=== PATIENT | male | born 1950 | race Caucasian/White ===

== ENCOUNTER 2018-12-25 20:58 | Inpatient (IN) | payer MEDICARE ==
[~2018-12-25] VITALS: Ht 170.2 cm; Wt 75.8 kg
[2018-12-25] MEDS ORDERED: OCTREOTIDE 500 MCG in SOD CHLORIDE 0.9% 49 ML IV STA (21:11)
[2018-12-25] MEDS ORDERED: OCTREOTIDE 50 MCG in SOD CHLORIDE 0.9% 25 ML IVPB STA (21:11)
[2018-12-25] MEDS ORDERED: PANTOPRAZOLE IV 80 MG in SOD CHLORIDE 0.9% 100 ML IVPB STA (21:11)
[2018-12-25] MEDS ORDERED: SOD CHLORIDE 0.9% 500 ML IV STA (21:11)
[2018-12-25] MEDS ORDERED: PANTOPRAZOLE IV 80 MG in SOD CHLORIDE 0.9% 100 ML IV STA (21:11)
[2018-12-25] MEDS ORDERED: ONDANSETRON INJ 8 MG in DEXTROSE 5% 50 ML IVPB STA (21:11)
[2018-12-25] MEDS ORDERED: SOD CHLORIDE 0.9% 1,000 ML IV SCH (22:57)
[2018-12-25] MEDS ORDERED: ONDANSETRON 4 MG INJ IV PRN ×2 (23:00→23:30)
[2018-12-25] MEDS ORDERED: ACETAMINOPHEN 325 MG TAB PO PRN (23:00)
--- NOTE | 2018-12-25 23:00 | ERD ---
ER Documentation Chief Complaint Chief Complaint R39. HEMATEMESIS TODAY. ABOUT 500CC BRIGHT RED BLOOD. HPI This is a 68-year-old male who is here for vomiting blood just prior to arrival. EMS reports he had about 500 cc of bright red blood seen with blood pressure was 80/40 was normalized in route and is normal here and stable. Patient denies any alcohol use or NSAID use no prior history of GI bleed except he had vomited about 2 weeks ago with specks of blood however he is complaining of no melena over the past 2 weeks.. Denies any abdominal pain other than occasional off-and-on left upper quadrant pain ROS All systems reviewed and are negative except as per history of present illness. Allergies Allergies: Coded Allergies: No Known Allergy (Unverified , 12/25/18) PMhx/Soc Medical and Surgical Hx: pt denies Medical Hx, pt denies Surgical Hx History of Surgery: No Anesthesia Reaction: No Hx Neurological Disorder: No Hx Respiratory Disorders: No Hx Cardiac Disorders: No Hx Psychiatric Problems: No Hx Miscellaneous Medical Probl: No Hx Alcohol Use: Yes (OCCASSIONALLY) Hx Substance Use: No Hx Tobacco Use: Yes Smoking Status: Former smoker FmHx Family History: No coronary disease Physical Exam Vitals Vital Signs Date Temp Pulse Resp B/P (MAP) Pulse Ox O2 O2 Flow FiO2 Time Delivery Rate 12/25/18 98.0 77 18 112/68 100 21:00 (83) Physical Exam Const: Well-developed, well-nourished Head: Atraumatic, normocephalic Eyes: Normal Conjunctiva, PERRLA, EOMI, normal sclera, no nystagmus ENT: Normal External Ears, Nose and Mouth, moist mucus membranes. Neck: Full range of motion. No meningismus, no lymphadenopathy. Resp: Clear to auscultation bilaterally, no wheezing, rhonchi, rales Cardio: Regular rate and rhythm, no murmurs, S1 S2 present Abd: Soft, mild left upper quadrant tenderness, non distended. Normal bowel sounds, no guarding or rebound, no pulsitile abdominal masses or bruits Skin: No petechiae or rashes, no ecchymosis , no maculopapular rash Back: No midline or flank tenderness Ext: No cyanosis, or edema, FROM x 4, normal inspection, neurovascularly intact x 4 Neur: Awake and alert, STR 5/5 x 4, sensation intact x 4, no focal findings, cerebellum intact Psych: Normal Mood and Affect Result Diagram: 12/25/18210312/25/182103 Results 24 hrs Laboratory Tests Test 12/25/18 21:04 White Blood Count 9.5 10^3/ul Red Blood Count 3.64 10^6/ul Hemoglobin 10.9 g/dl Hematocrit 33.2 % Mean Corpuscular Volume 91.2 fl Mean Corpuscular Hemoglobin 29.9 pg Mean Corpuscular Hemoglobin Concent 32.8 g/dl Red Cell Distribution Width 12.4 % Platelet Count 231 10^3/UL Mean Platelet Volume 9.8 fl Immature Granulocytes % 0.400 % Neutrophils % 68.9 % Lymphocytes % 24.4 % Monocytes % 5.2 % Eosinophils % 0.8 % Basophils % 0.3 % Nucleated Red Blood Cells % 0.0 /100WBC Immature Granulocytes # 0.040 10^3/ul Neutrophils # 6.5 10^3/ul Lymphocytes # 2.3 10^3/ul Monocytes # 0.5 10^3/ul Eosinophils # 0.1 10^3/ul Basophils # 0.0 10^3/ul Nucleated Red Blood Cells # 0.0 10^3/ul Prothrombin Time 12.9 Sec Prothrombin Time Ratio 1.0 INR International Normalized Ratio 0.96 Activated Partial Thromboplast Time 20.0 Sec Sodium Level 143 mmol/L Potassium Level 3.7 mmol/L Chloride Level 107 mmol/L Carbon Dioxide Level 24 mmol/L Anion Gap 12 Blood Urea Nitrogen 22 mg/dl Creatinine 0.86 mg/dl Est Glomerular Filtrat Rate mL/min > 60 mL/min Glucose Level 140 mg/dl Calcium Level 9.4 mg/dl Total Bilirubin 0.4 mg/dl Direct Bilirubin 0.00 mg/dl Indirect Bilirubin 0.4 mg/dl Aspartate Amino Transf (AST/SGOT) 19 IU/L Alanine Aminotransferase (ALT/SGPT) 15 IU/L Alkaline Phosphatase 50 IU/L Troponin I < 0.012 ng/ml Total Protein 6.3 g/dl Albumin 3.8 g/dl Globulin 2.50 g/dl Albumin/Globulin Ratio 1.52 Current Medications Medications Dose Sig/Shahram Start Time Status Last (Trade) Ordered Route PRN Stop Time Admin Dose Reason Admin Sodium 500 ml @ Q1H STAT 12/25/18 DC 12/25/18 Chloride 500 mls/hr IV 21:11 12/25/18 21:40 22:10 Pantoprazole 100 ml @ ONCE STAT 12/25/18 DC 12/25/18 80 mg/Sodium 400 mls/hr IVPB 21:11 12/25/18 21:41 Chloride 21:25 Pantoprazole 100 ml @ ONCE STAT 12/25/18 12/25/18 80 mg/Sodium 10 mls/hr IV 21:11 12/26/18 21:41 Chloride 07:10 Octreotide 26 ml @ Q16M STAT 12/25/18 DC Acetate 50 100 mls/hr IVPB 21:11 12/25/18 mcg/ Sodium 21:54 Chloride Octreotide 50 ml @ 5 ONCE STAT 12/25/18 DC Acetate 500 mls/hr IV 21:11 12/25/18 mcg/ Sodium 21:54 Chloride Ondansetron 54 ml @ ONCE STAT 12/25/18 DC HCl 8 200 mls/hr IVPB 21:11 12/25/18 mg/Dextrose 21:54 Procedures/MDM Patient's hemoglobin is relatively stable at 10.9. He received some IV fluids with Protonix IV bolus and drip. I did discuss the case with GI, Dr. Cher brown who will see the patient in the morning for a scope Critical Care Time: 35 minutes Treatments/Evaluations: Close monitoring and treatment of unstable vital signs, cardiorespiratory, and neurologic status, while maintaining tight balance of fl uid, respiratory, and cardiac interventions. This time includes discussing the case with the patient and the patient's family. This time does not include all procedures stated elsewhere in this record. This time also includes reviewing old records, labs and radiological studies. This time includes examining and re- examining the patient. Additionally, this time also includes arranging care with admitting and consulting physicians. Departure Diagnosis: Primary Impression: Hematemesis Nausea presence: with nausea Qualified Codes: K92.0 - Hematemesis Condition: Stable ZAC VEGA DO Dec 25, 2018 23:00
[2018-12-25] MEDS: SOD CHLORIDE 0.9% 1,000 ML IV SCH (23:29)
[2018-12-25] MEDS ORDERED: morphine 2 MG INJ IV PRN (23:30)
[2018-12-25] MEDS ORDERED: HYDROCODONE/APAP (5/325) TAB PO PRN (23:30)
[2018-12-25] MEDS ORDERED: hydrALAzine 20 MG INJ IV PRN (23:30)
[2018-12-25] MEDS ORDERED: NACL 0.9% 3 ML SYG IV SCH (23:30)
[2018-12-25] MEDS ORDERED: MAGNESIUM HYDROXIDE 30ML CUP PO PRN (23:30)
[2018-12-25] MEDS ORDERED: DOCUSATE SODIUM 100 MG CAP PO PRN (23:30)
[2018-12-25] MEDS ORDERED: LORAZEPAM 2 MG INJ IV PRN (23:30)
[2018-12-25] MEDS ORDERED: NITROGLYCERIN (SL) 0.4 MG TAB SL PRN (23:30)
[2018-12-26] VITALS (17 sets, daily range): BP systolic 103–116; BP diastolic 58–66; PULSE 60–124; RESP 16–22; Ht 170.2 cm; Wt 75.8 kg
[2018-12-26] MEDS ORDERED: OMEP40CA6 PO (00:01)
[2018-12-26] MEDS ORDERED: TAMS-14 PO (00:01)
[2018-12-26] MEDS ORDERED: ACET1TAB40 PO (00:01)
[2018-12-26] MEDS ORDERED: LEVO500T10 PO (00:01)
--- NOTE | 2018-12-26 04:34 | HP ---
Date/Time of Note Date/Time of Note DATE: 12/26/18 TIME: 04:30 Assessment/Plan VTE Prophylaxis SCD applied (from Nsg): Yes Pharmacological prophylaxis: NA/contraindicated Pharm contraindication: bleeding Lines/Catheters IV Catheter Type (from Nrs): Saline Lock Urinary Cath still in place: No Assessment/Plan Hospital Course Assessment and plan: 68-year-old male with no significant past medical history who was brought in because of complaint of upper GI bleeding episode x1. 1. Upper GI bleeding/hematemesis: Hemoglobin stable at 10.9. Apparently patient may have had a brief episode of this that occurred 2 weeks ago. -We will continue PPI IV twice daily and obtain GI consult, follow-up TSH, A1c, lipid panel -Continue IV fluids, follow a.m. labs including stool occult test 2. DVT perplexes: Medications contraindicated just use SCDs for now Result Diagram: 12/25/18210312/25/182103 Results 24hrs Laboratory Tests Test 12/25/18 21:04 White Blood Count 9.5 Red Blood Count 3.64 L Hemoglobin 10.9 L Hematocrit 33.2 L Mean Corpuscular Volume 91.2 Mean Corpuscular Hemoglobin 29.9 Mean Corpuscular Hemoglobin Concent 32.8 Red Cell Distribution Width 12.4 Platelet Count 231 Mean Platelet Volume 9.8 Immature Granulocytes % 0.400 Neutrophils % 68.9 Lymphocytes % 24.4 Monocytes % 5.2 Eosinophils % 0.8 Basophils % 0.3 Nucleated Red Blood Cells % 0.0 Immature Granulocytes # 0.040 H Neutrophils # 6.5 Lymphocytes # 2.3 Monocytes # 0.5 Eosinophils # 0.1 Basophils # 0.0 Nucleated Red Blood Cells # 0.0 Prothrombin Time 12.9 Prothrombin Time Ratio 1.0 INR International Normalized Ratio 0.96 Activated Partial Thromboplast Time 20.0 L Sodium Level 143 Potassium Level 3.7 Chloride Level 107 Carbon Dioxide Level 24 Anion Gap 12 Blood Urea Nitrogen 22 H Creatinine 0.86 Est Glomerular Filtrat Rate mL/min > 60 Glucose Level 140 Calcium Level 9.4 Total Bilirubin 0.4 Direct Bilirubin 0.00 Indirect Bilirubin 0.4 Aspartate Amino Transf (AST/SGOT) 19 Alanine Aminotransferase (ALT/SGPT) 15 Alkaline Phosphatase 50 Troponin I < 0.012 Total Protein 6.3 Albumin 3.8 Globulin 2.50 Albumin/Globulin Ratio 1.52 Free Thyroxine 1.22 HPI/ROS Admit Date/Time Admit Date/Time Dec 25, 2018 at 22:57 Hx of Present Illness 68-year-old male with no significant past medical history who was brought in today because of complaint of upper GI bleeding earlier. Per EMS documentation apparently the patient had vomited 500 cc of blood at home and noticed his blood pressure was low 80/40. Blood pressure improved. No fevers or chills, no diarrhea constipation, no chest pain or shortness of breath, no lower GI bleeding. Patient apparently had a brief episode of specks of blood that he vomited about 2 weeks ago, but other than that no prior history of any gastritis or ulcers or other known episodes of GI bleeding. When he came in today his hemoglobin was 10.9, however he was started on PPI drip and did receive octreotide in the ER. PMH/Family/Social Past Medical History Medications Current Medications Pantoprazole 80 mg/Sodium Chloride 100 ml @ 10 mls/hr ONCE STAT IV Last administered on 12/25/18at 21:41; Admin Dose 10 MLS/HR; Start 12/25/18 at 21:11; Stop 12/26/18 at 07:10 Sodium Chloride 1,000 ml @ 80 mls/hr [id number] IV Last administered on 12/25/18at 23:28; Admin Dose 80 MLS/HR; Start 12/25/18 at 22:57; Stop 12/26/18 at 11:26 Ondansetron HCl (Zofran Inj) 4 mg ER BRIDGE PRN IV NAUSEA/VOMITING; Start 9 at 23:00; Stop 12/26/18 at 22:59 Acetaminophen (Tylenol Tab) 650 mg ER BRIDGE PRN PO .MILD PAIN 1-3 OR TEMP; Start 12/25/18 at 23:00; Stop 12/26/18 at 22:59 IV Flush (NS 3 ml) 3 ml PER PROTOCOL IV ; Start 12/25/18 at 23:30 Ondansetron HCl (Zofran Inj) 4 mg Q6H PRN IV NAUSEA/VOMITING; Start 12/25/18 at 23:30 Acetaminophen (Tylenol Tab) 650 mg Q6H PRN PO .PAIN 1-3 OR TEMP; Start 12/25/18 at 23:30 Acetaminophen/ Hydrocodone Bitart ([place] (5/325)) 1 tab Q6H PRN PO .MOD PAIN 4- 6; Start 12/25/18 at 23:30 Morphine Sulfate (morphine) 2 mg Q4H PRN IV .SEVERE PAIN 7-10; Start 12/25/18 at 23:30 Docusate Sodium (Colace) 100 mg Q12H PRN PO .CONSTIPATION; Start 12/25/18 at 23:30 Magnesium Hydroxide (Milk Of Mag) 30 ml DAILY PRN PO .CONSTIPATION; Start 12/25/18 at 23:30 Pantoprazole (Protonix Iv) 40 mg BID@0600,1800 IV ; Start 12/26/18 at 06:00 Lorazepam (Ativan) 0.5 mg Q6H PRN IV ANXIETY; Start 12/25/18 at 23:30 Sodium Chloride 1,000 ml @ 100 mls/hr Q10H IV Last administered on 12/25/18at 23:29; Admin Dose 100 MLS/HR; Start 12/25/18 at 23:04 Albuterol/ Ipratropium (Duoneb) 3 ml Q4H RESP THERAPY PRN HHN SHORTNESS OF BREATH; Start 12/25/18 at 23:30 Hydralazine HCl (Apresoline) 10 mg Q6H PRN IV ELEVATED BLOOD PRESSURE; Start 12/25/18 at 23:30 Nitroglycerin (Nitroglycerin (Sl Tab) 0.4 Mg) 1 tab Q5M PRN SL ANGINA; Start 12/25/18 at 23:30 Coded Allergies: No Known Allergy (Unverified , 12/25/18) Social History Alcohol Use: occasionally Smoking Status: Former smoker Drug Use: none Exam/Review of Systems Vital Signs Vitals Vital Signs Date Temp Pulse Resp B/P (MAP) Pulse Ox O2 O2 Flow FiO2 Time Delivery Rate 12/26/18 98.2 81 18 116/64 99 04:00 (81) 12/26/18 Room Air 00:20 Intake and Output 12/25/18 12/25/18 12/26/18 1515:00 23:00 07:00 IntakeIntake Total 1820 ml BalanceBalance 1820 ml Exam Exam Gen: Lying in bed, no acute distress Head: Atraumatic. Eyes: Normal Conjunctiva. ENT: Normal External Ears, Nose and Mouth. Neck: Full range of motion. No meningismus. Resp: Clear to auscultation bilaterally. Cardio: Regular rate and rhythm. Abd: Soft, nondistended, normal bowel sounds, non tender. Ext: No lower extremity edema bilaterally Neuro: No focal deficits KAITLYN SHIPLEY Dec 26, 2018 04:34
[2018-12-26] MEDS: PANTOPRAZOLE 40 MG INJ IV SCH ×2 (05:34→17:11)
[2018-12-26] MEDS: SOD CHLORIDE 0.9% 1,000 ML IV SCH ×3 (09:04→18:56)
--- NOTE | 2018-12-26 11:53 | HPN ---
Date/Time of Note Date/Time of Note DATE: 12/26/18 TIME: 11:53 Interval H&P Admission Note Pt. seen H&P reviewed: No system changes CONG HUNTLEY MD Dec 26, 2018 11:53
--- NOTE | 2018-12-26 12:19 | PREAC ---
Date/Time of Note Date/Time of Note DATE: 12/26/18 TIME: 12:17 Anesthesia Eval and Record Evaluation Time Pre-Procedure Interview DATE: 12/26/18 TIME: 12:17 Age 68 Sex male NPO: 8 hrs Preoperative diagnosis upper gi bleed Planned procedure egd Past Medical History Past Medical History: Includes Heme: Anemia Surgery & Anesthesia Issues No known issue Meds Anticoagulation: No Beta Pedro within 24 hr: No Reason Beta Pedro not given: Pt. not on B-Pedro Reported Medications Tamsulosin Hcl* (Flomax*) 0.4 Mg Cap.er.24h, 0.4 MG PO DAILY, CAP 12/26/18 Acetaminophen with Codeine (Acetaminophen-Cod #3 Tablet) 1 Each Tablet, 1 TAB PO Q6H, #7 TAB 12/26/18 Levofloxacin* (Levofloxacin*) 500 Mg Tablet, 500 MG PO DAILY, TAB 12/26/18 Omeprazole* (Omeprazole*) 40 Mg Capsule.dr, 40 MG PO DAILY, #30 CAP 12/26/18 Current Medications Ondansetron HCl (Zofran Inj) 4 mg ER BRIDGE PRN IV NAUSEA/VOMITING; Start 12/25/18 at 23:00; Stop 12/26/18 at 22:59 Acetaminophen (Tylenol Tab) 650 mg ER BRIDGE PRN PO .MILD PAIN 1-3 OR TEMP; Start 12/25/18 at 23:00; Stop 12/26/18 at 22:59 IV Flush (NS 3 ml) 3 ml PER PROTOCOL IV ; Start 12/25/18 at 23:30 Ondansetron HCl (Zofran Inj) 4 mg Q6H PRN IV NAUSEA/VOMITING; Start 12/25/18 at 23:30 Acetaminophen (Tylenol Tab) 650 mg Q6H PRN PO .PAIN 1-3 OR TEMP; Start 12/25/18 at 23:30 Acetaminophen/ Hydrocodone Bitart ([place] (5/325)) 1 tab Q6H PRN PO .MOD PAIN 4- 6; Start 12/25/18 at 23:30 Morphine Sulfate (morphine) 2 mg Q4H PRN IV .SEVERE PAIN 7-10; Start 12/25/18 at 23:30 Docusate Sodium (Colace) 100 mg Q12H PRN PO .CONSTIPATION; Start 12/25/18 at 23:30 Magnesium Hydroxide (Milk Of Mag) 30 ml DAILY PRN PO .CONSTIPATION; Start 12/25/18 at 23:30 Pantoprazole (Protonix Iv) 40 mg BID@0600,1800 IV ; Start 12/26/18 at 06:00 Lorazepam (Ativan) 0.5 mg Q6H PRN IV ANXIETY; Start 12/25/18 at 23:30 Sodium Chloride 1,000 ml @ 100 mls/hr Q10H IV Last administered on 12/26/18at 09:42; Admin Dose 100 MLS/HR; Start 12/25/18 at 23:04 Albuterol/ Ipratropium (Duoneb) 3 ml Q4H RESP THERAPY PRN HHN SHORTNESS OF BREATH; Start 12/25/18 at 23:30 Hydralazine HCl (Apresoline) 10 mg Q6H PRN IV ELEVATED BLOOD PRESSURE; Start 12/25/18 at 23:30 Nitroglycerin (Nitroglycerin (Sl Tab) 0.4 Mg) 1 tab Q5M PRN SL ANGINA; Start 12/25/18 at 23:30 Meds reviewed: Yes Allergies Coded Allergies: No Known Allergy (Unverified , 12/25/18) Allergies Reviewed: Yes Labs/Studies Labs Reviewed: Reviewed by anesthesiologist Result Diagram: 12/26/1862212/26/18622 Laboratory Tests 12/26/18 06:23 Blood Bank Test 12/25/18 21:04 Antibody Screen NEGATIVE Blood Type B POSITIVE test: N/A Studies: ECG, CXR Pre-procedure Exam Last vitals Vital Signs Date Temp Pulse Resp B/P (MAP) Pulse Ox O2 O2 Flow FiO2 Time Delivery Rate 12/26/18 98.0 70 18 107/60 96 Room Air 11:58 (76) Airway: Adequate mouth opening, Adequate thyromental dist Mallampati: Mallampati I Teeth: Normal Lung: Normal Heart: Normal ASA Physical Status ASA physical status: 3 Emergency: None Planned Anesthetic General/MAC: MAC Planned Pain Management Parenteral pain med Pre-operative Attestations Prior to commencing anesthesia and surgery, the patient was re-evaluated, there was verification of: *The patient's identity *The results of appropriate recent lab work and preoperative vital signs *The above evaluation not changing prior to induction *Anesthetic plan, risk benefits, alternative and complications discussed with patient/family; questions answered; patient/family understands, accepts and wishes to proceed. JULIANNA YOUNG Dec 26, 2018 12:19
--- NOTE | 2018-12-26 12:19 | CONS ---
Assessment/Plan Assessment/Plan Hospital Course (Demo Recall) Impression: GI bleeding/hematemesis. Moderate anemia. Plan: EGD today. Further recommendation will depend on our findings. Consultation Date/Type/Reason Admit Date/Time Dec 25, 2018 at 22:57 Date of Consultation: Dec 26, 2018 Type of Consult Gastroenterology Reason for Consultation GI bleeding Date/Time of Note DATE: 12/26/18 TIME: 12:07 Hx of Present Illness 68-year-old male who presents to the emergency room complaining of episodes of hematemesis. The patient describes epigastric abdominal pain. And sudden onset of nausea which resulted in hematemesis on several occasions. The patient states that approximately 2 to 3 weeks ago had similar episode but not as severe as this 1. Upon evaluation the emergency room patient is noticed to be hemo dynamically stable although initially was slightly hypotensive. His hemoglobin came in the 10 g range. The patient is hospitalized for further management. We will evaluate endoscopically and further recommendation will depend on our findings. Review of Systems: [A 12 system, review was conducted and is negative except as noted in the HPI or here.] Gastrointestinal and liver: [As noted in HPI] Past Medical History Benign prostatic hypertrophy Home Meds Reported Medications Tamsulosin Hcl* (Flomax*) 0.4 Mg Cap.er.24h, 0.4 MG PO DAILY, CAP 12/26/18 Acetaminophen with Codeine (Acetaminophen-Cod #3 Tablet) 1 Each Tablet, 1 TAB PO Q6H, #7 TAB 12/26/18 Levofloxacin* (Levofloxacin*) 500 Mg Tablet, 500 MG PO DAILY, TAB 12/26/18 Omeprazole* (Omeprazole*) 40 Mg Capsule.dr, 40 MG PO DAILY, #30 CAP 12/26/18 Medications Current Medications Ondansetron HCl (Zofran Inj) 4 mg ER BRIDGE PRN IV NAUSEA/VOMITING; Start 12/25/18 at 23:00; Stop 12/26/18 at 22:59 Acetaminophen (Tylenol Tab) 650 mg ER BRIDGE PRN PO .MILD PAIN 1-3 OR TEMP; Start 12/25/18 at 23:00; Stop 12/26/18 at 22:59 IV Flush (NS 3 ml) 3 ml PER PROTOCOL IV ; Start 12/25/18 at 23:30 Ondansetron HCl (Zofran Inj) 4 mg Q6H PRN IV NAUSEA/VOMITING; Start 12/25/18 at 23:30 Acetaminophen (Tylenol Tab) 650 mg Q6H PRN PO .PAIN 1-3 OR TEMP; Start 12/25/18 at 23:30 Acetaminophen/ Hydrocodone Bitart ([place] (5/325)) 1 tab Q6H PRN PO .MOD PAIN 4- 6; Start 12/25/18 at 23:30 Morphine Sulfate (morphine) 2 mg Q4H PRN IV .SEVERE PAIN 7-10; Start 12/25/18 at 23:30 Docusate Sodium (Colace) 100 mg Q12H PRN PO .CONSTIPATION; Start 12/25/18 at 23:30 Magnesium Hydroxide (Milk Of Mag) 30 ml DAILY PRN PO .CONSTIPATION; Start 12/25/18 at 23:30 Pantoprazole (Protonix Iv) 40 mg BID@0600,1800 IV ; Start 12/26/18 at 06:00 Lorazepam (Ativan) 0.5 mg Q6H PRN IV ANXIETY; Start 12/25/18 at 23:30 Sodium Chloride 1,000 ml @ 100 mls/hr Q10H IV Last administered on 12/26/18at 09:42; Admin Dose 100 MLS/HR; Start 12/25/18 at 23:04 Albuterol/ Ipratropium (Duoneb) 3 ml Q4H RESP THERAPY PRN HHN SHORTNESS OF BREATH; Start 12/25/18 at 23:30 Hydralazine HCl (Apresoline) 10 mg Q6H PRN IV ELEVATED BLOOD PRESSURE; Start 12/25/18 at 23:30 Nitroglycerin (Nitroglycerin (Sl Tab) 0.4 Mg) 1 tab Q5M PRN SL ANGINA; Start 12/25/18 at 23:30 Allergies: Coded Allergies: No Known Allergy (Unverified , 12/25/18) Past Surgical History Past Surgical Hx: no surgical history Family History Significant Family History: no pertinent family hx Social History Alcohol Use: occasionally Smoking Status: Former smoker Drug Use: none Exam/Review of Systems Exam Vitals Vital Signs Date Temp Pulse Resp B/P (MAP) Pulse Ox O2 O2 Flow FiO2 Time Delivery Rate 12/26/18 98.0 70 18 107/60 96 Room Air 11:58 (76) Intake and Output 6/02/0512/25/18 12/26/18 1515:00 23:00 07:00 IntakeIntake Total 1860 ml BalanceBalance 1860 ml Exam PHYSICAL EXAMINATION: GENERAL: Well developed, well nourished, alert & oriented x 3, in no acute distress SKIN: No lesions, no stigmata chronic liver disease, no evidence of bleeding diathesis LYMPHATIC: No palpable lymphadenopathy. HEAD: Normocephalic, atraumatic, no tenderness. EYES: Pupils equal reactive to light and accommodation, full extraocular movements, sclera clear, non-icteric, no discharge. EARS/NOSE AND THROAT: Ears normal, nose normal, oropharynx normal, oral membranes well hydrated without lesions. NECK: Supple, no masses, thyroid normal, JVP within normal limits, carotids normal without bruits. CHEST: Inspection within normal limits. CARDIOVASCULAR: Heart: Regular rate and rhythm, no murmurs, gallops or rubs. Peripheral pulses present within normal limits, no cyanosis, clubbing or edemas. No pulsatile abdominal mass RESPIRATORY: Lungs clear to auscultation and percussion, no wheezing, no rubs GASTROINTESTINAL AND LIVER: Abdomen: Soft, non tenderness, non-distended, no hernias, no masses, no organomegaly, no ascites, no guarding, no rebound tenderness, normoactive bowel sounds. Rectal: Deferred. GENITOURINARY: [Male genitalia within normal limits.][Female genitalia within normal limits.] EXTREMITIES: No cyanosis, clubbing or edema. [MUSCULO-SKELETAL: Gait and station within normal limits, range of motion adequate.] [NEUROLOGIC: Cranial nerves II-XII intact, Motor within normal limits, Sensory within normal limits. Reflexes within normal limits. PSYCHIATRIC: Alert & oriented x 3, mood/affect/judgement adequate] Results Result Diagram: 12/26/18 0612/26/18 0623 Results 24hrs Laboratory Tests Test 12/25/18 21:04 12/26/18 06:23 White Blood Count 9.5 7.0 # Red Blood Count 3.64 L 3.27 L Hemoglobin 10.9 L 9.6 L Hematocrit 33.2 L 29.5 L Mean Corpuscular Volume 91.2 90.2 Mean Corpuscular Hemoglobin 29.9 29.4 Mean Corpuscular Hemoglobin Concent 32.8 32.5 Red Cell Distribution Width 12.4 12.6 Platelet Count 231 211 Mean Platelet Volume 9.8 9.7 Immature Granulocytes % 0.400 0.400 Neutrophils % 68.9 54.5 Lymphocytes % 24.4 35.8 Monocytes % 5.2 8.6 Eosinophils % 0.8 0.4 Basophils % 0.3 0.3 Nucleated Red Blood Cells % 0.0 0.0 Immature Granulocytes # 0.040 H 0.030 Neutrophils # 6.5 3.8 Lymphocytes # 2.3 2.5 Monocytes # 0.5 0.6 Eosinophils # 0.1 0.0 Basophils # 0.0 0.0 Nucleated Red Blood Cells # 0.0 0.0 Prothrombin Time 12.9 Prothrombin Time Ratio 1.0 INR International Normalized Ratio 0.96 Activated Partial Thromboplast Time 20.0 L Sodium Level 143 141 Potassium Level 3.7 4.8 Chloride Level 107 107 Carbon Dioxide Level 24 28 Anion Gap 12 6 Blood Urea Nitrogen 22 H 19 Creatinine 0.86 0.76 Est Glomerular Filtrat Rate mL/min > 60 > 60 Glucose Level 140 122 Calcium Level 9.4 9.0 Total Bilirubin 0.4 Direct Bilirubin 0.00 Indirect Bilirubin 0.4 Aspartate Amino Transf (AST/SGOT) 19 Alanine Aminotransferase (ALT/SGPT) 15 Alkaline Phosphatase 50 Troponin I < 0.012 Total Protein 6.3 Albumin 3.8 Globulin 2.50 Albumin/Globulin Ratio 1.52 Free Thyroxine 1.22 Hemoglobin A1c 5.4 Phosphorus Level 3.9 Magnesium Level 1.9 Triglycerides Level 111 Cholesterol Level 162 LDL Cholesterol, Calculated 94 HDL Cholesterol 46 Cholesterol/HDL Ratio 3.5 Thyroid Stimulating Hormone (TSH) 0.384 L Medications Medication Current Medications Ondansetron HCl (Zofran Inj) 4 mg ER BRIDGE PRN IV NAUSEA/VOMITING; Start 12/25/18 at 23:00; Stop 12/26/18 at 22:59 Acetaminophen (Tylenol Tab) 650 mg ER BRIDGE PRN PO .MILD PAIN 1-3 OR TEMP; Start 12/25/18 at 23:00; Stop 12/26/18 at 22:59 IV Flush (NS 3 ml) 3 ml PER PROTOCOL IV ; Start 12/25/18 at 23:30 Ondansetron HCl (Zofran Inj) 4 mg Q6H PRN IV NAUSEA/VOMITING; Start 12/25/18 at 23:30 Acetaminophen (Tylenol Tab) 650 mg Q6H PRN PO .PAIN 1-3 OR TEMP; Start 12/25/18 at 23:30 Acetaminophen/ Hydrocodone Bitart ([place] (5/325)) 1 tab Q6H PRN PO .MOD PAIN 4- 6; Start 12/25/18 at 23:30 Morphine Sulfate (morphine) 2 mg Q4H PRN IV .SEVERE PAIN 7-10; Start 12/25/18 at 23:30 Docusate Sodium (Colace) 100 mg Q12H PRN PO .CONSTIPATION; Start 12/25/18 at 23:30 Magnesium Hydroxide (Milk Of Mag) 30 ml DAILY PRN PO .CONSTIPATION; Start 12/25/18 at 23:30 Pantoprazole (Protonix Iv) 40 mg BID@0600,1800 IV ; Start 12/26/18 at 06:00 Lorazepam (Ativan) 0.5 mg Q6H PRN IV ANXIETY; Start 12/25/18 at 23:30 Sodium Chloride 1,000 ml @ 100 mls/hr Q10H IV Last administered on 12/26/18at 09:42; Admin Dose 100 MLS/HR; Start 12/25/18 at 23:04 Albuterol/ Ipratropium (Duoneb) 3 ml Q4H RESP THERAPY PRN HHN SHORTNESS OF BREATH; Start 12/25/18 at 23:30 Hydralazine HCl (Apresoline) 10 mg Q6H PRN IV ELEVATED BLOOD PRESSURE; Start 12/25/18 at 23:30 Nitroglycerin (Nitroglycerin (Sl Tab) 0.4 Mg) 1 tab Q5M PRN SL ANGINA; Start 12/25/18 at 23:30 CONG HUNTLEY MD Dec 26, 2018 12:19
[2018-12-26] MEDS ORDERED: PROPOFOL 40 ML ONE (12:27)
[2018-12-26] MEDS ORDERED: LIDOCAINE 2% (SDV) 5 ML INJ ONE (12:27)
[2018-12-26] MEDS ORDERED: hydrALAzine 20 MG INJ IV PRN (12:30)
[2018-12-26] MEDS ORDERED: EPHEDrine 25 MG/5 ML SYG IV PRN (12:30)
[2018-12-26] MEDS ORDERED: ONDANSETRON 4 MG INJ IV PRN (12:30)
[2018-12-26] MEDS ORDERED: METOCLOPRAMIDE 10 MG INJ IV PRN (12:30)
[2018-12-26] MEDS ORDERED: LABETALOL HCL 20MG INJ IV PRN (12:30)
[2018-12-26] MEDS ORDERED: FENTAnyl 50 MCG/ML VIAL IV PRN (12:30)
[2018-12-26] MEDS ORDERED: DIPHENHYDRAMINE 50 MG INJ IV PRN (12:30)
--- NOTE | 2018-12-26 12:54 | PN ---
Date/Time of Note Date/Time of Note DATE: 12/26/18 TIME: 12:53 Assessment/Plan VTE Prophylaxis Risk score (from Ns)>0 risk: 3 SCD applied (from Ns): Yes Lines/Catheters IV Catheter Type (from Nrs): Saline Lock Urinary Cath still in place: No Assessment/Plan Result Diagram: 12/26/18 0623 12/26/18 0623 Results 24hrs Laboratory Tests Test 12/25/18 21:04 12/26/18 06:23 White Blood Count 9.5 7.0 # Red Blood Count 3.64 L 3.27 L Hemoglobin 10.9 L 9.6 L Hematocrit 33.2 L 29.5 L Mean Corpuscular Volume 91.2 90.2 Mean Corpuscular Hemoglobin 29.9 29.4 Mean Corpuscular Hemoglobin Concent 32.8 32.5 Red Cell Distribution Width 12.4 12.6 Platelet Count 231 211 Mean Platelet Volume 9.8 9.7 Immature Granulocytes % 0.400 0.400 Neutrophils % 68.9 54.5 Lymphocytes % 24.4 35.8 Monocytes % 5.2 8.6 Eosinophils % 0.8 0.4 Basophils % 0.3 0.3 Nucleated Red Blood Cells % 0.0 0.0 Immature Granulocytes # 0.040 H 0.030 Neutrophils # 6.5 3.8 Lymphocytes # 2.3 2.5 Monocytes # 0.5 0.6 Eosinophils # 0.1 0.0 Basophils # 0.0 0.0 Nucleated Red Blood Cells # 0.0 0.0 Prothrombin Time 12.9 Prothrombin Time Ratio 1.0 INR International Normalized Ratio 0.96 Activated Partial Thromboplast Time 20.0 L Sodium Level 143 141 Potassium Level 3.7 4.8 Chloride Level 107 107 Carbon Dioxide Level 24 28 Anion Gap 12 6 Blood Urea Nitrogen 22 H 19 Creatinine 0.86 0.76 Est Glomerular Filtrat Rate mL/min > 60 > 60 Glucose Level 140 122 Calcium Level 9.4 9.0 Total Bilirubin 0.4 Direct Bilirubin 0.00 Indirect Bilirubin 0.4 Aspartate Amino Transf (AST/SGOT) 19 Alanine Aminotransferase (ALT/SGPT) 15 Alkaline Phosphatase 50 Troponin I < 0.012 Total Protein 6.3 Albumin 3.8 Globulin 2.50 Albumin/Globulin Ratio 1.52 Free Thyroxine 1.22 Hemoglobin A1c 5.4 Phosphorus Level 3.9 Magnesium Level 1.9 Triglycerides Level 111 Cholesterol Level 162 LDL Cholesterol, Calculated 94 HDL Cholesterol 46 Cholesterol/HDL Ratio 3.5 Thyroid Stimulating Hormone (TSH) 0.384 L Exam/Review of Systems Exam Vitals Vital Signs Date Temp Pulse Resp B/P (MAP) Pulse Ox O2 O2 Flow FiO2 Time Delivery Rate 12/26/18 98.0 70 18 107/60 96 Room Air 11:58 (76) Intake and Output 12/25/18 12/25/18 12/26/18 1515:00 23:00 07:00 IntakeIntake Total 1860 ml BalanceBalance 1860 ml Results Results 24hrs Laboratory Tests Test 12/25/18 21:04 12/26/18 06:23 White Blood Count 9.5 7.0 # Red Blood Count 3.64 L 3.27 L Hemoglobin 10.9 L 9.6 L Hematocrit 33.2 L 29.5 L Mean Corpuscular Volume 91.2 90.2 Mean Corpuscular Hemoglobin 29.9 29.4 Mean Corpuscular Hemoglobin Concent 32.8 32.5 Red Cell Distribution Width 12.4 12.6 Platelet Count 231 211 Mean Platelet Volume 9.8 9.7 Immature Granulocytes % 0.400 0.400 Neutrophils % 68.9 54.5 Lymphocytes % 24.4 35.8 Monocytes % 5.2 8.6 Eosinophils % 0.8 0.4 Basophils % 0.3 0.3 Nucleated Red Blood Cells % 0.0 0.0 Immature Granulocytes # 0.040 H 0.030 Neutrophils # 6.5 3.8 Lymphocytes # 2.3 2.5 Monocytes # 0.5 0.6 Eosinophils # 0.1 0.0 Basophils # 0.0 0.0 Nucleated Red Blood Cells # 0.0 0.0 Prothrombin Time 12.9 Prothrombin Time Ratio 1.0 INR International Normalized Ratio 0.96 Activated Partial Thromboplast Time 20.0 L Sodium Level 143 141 Potassium Level 3.7 4.8 Chloride Level 107 107 Carbon Dioxide Level 24 28 Anion Gap 12 6 Blood Urea Nitrogen 22 H 19 Creatinine 0.86 0.76 Est Glomerular Filtrat Rate mL/min > 60 > 60 Glucose Level 140 122 Calcium Level 9.4 9.0 Total Bilirubin 0.4 Direct Bilirubin 0.00 Indirect Bilirubin 0.4 Aspartate Amino Transf (AST/SGOT) 19 Alanine Aminotransferase (ALT/SGPT) 15 Alkaline Phosphatase 50 Troponin I < 0.012 Total Protein 6.3 Albumin 3.8 Globulin 2.50 Albumin/Globulin Ratio 1.52 Free Thyroxine 1.22 Hemoglobin A1c 5.4 Phosphorus Level 3.9 Magnesium Level 1.9 Triglycerides Level 111 Cholesterol Level 162 LDL Cholesterol, Calculated 94 HDL Cholesterol 46 Cholesterol/HDL Ratio 3.5 Thyroid Stimulating Hormone (TSH) 0.384 L Medications Medication Current Medications Ondansetron HCl (Zofran Inj) 4 mg ER BRIDGE PRN IV NAUSEA/VOMITING; Start 12/25/18 at 23:00; Stop 12/26/18 at 22:59 IV Flush (NS 3 ml) 3 ml PER PROTOCOL IV ; Start 12/25/18 at 23:30 Ondansetron HCl (Zofran Inj) 4 mg Q6H PRN IV NAUSEA/VOMITING; Start 12/25/18 at 23:30 Acetaminophen (Tylenol Tab) 650 mg Q6H PRN PO .PAIN 1-3 OR TEMP; Start 12/25/18 at 23:30 Acetaminophen/ Hydrocodone Bitart ([place] (5/325)) 1 tab Q6H PRN PO .MOD PAIN 4- 6; Start 12/25/18 at 23:30 Morphine Sulfate (morphine) 2 mg Q4H PRN IV .SEVERE PAIN 7-10; Start 12/25/18 at 23:30 Docusate Sodium (Colace) 100 mg Q12H PRN PO .CONSTIPATION; Start 12/25/18 at 23:30 Magnesium Hydroxide (Milk Of Mag) 30 ml DAILY PRN PO .CONSTIPATION; Start 12/25/18 at 23:30 Pantoprazole (Protonix Iv) 40 mg BID@0600,1800 IV ; Start 12/26/18 at 06:00 Lorazepam (Ativan) 0.5 mg Q6H PRN IV ANXIETY; Start 12/25/18 at 23:30 Sodium Chloride 1,000 ml @ 100 mls/hr Q10H IV Last administered on 12/26/18at 09:42; Admin Dose 100 MLS/HR; Start 12/25/18 at 23:04 Albuterol/ Ipratropium (Duoneb) 3 ml Q4H RESP THERAPY PRN HHN SHORTNESS OF BREATH; Start 12/25/18 at 23:30 Hydralazine HCl (Apresoline) 10 mg Q6H PRN IV ELEVATED BLOOD PRESSURE; Start 12/25/18 at 23:30 Nitroglycerin (Nitroglycerin (Sl Tab) 0.4 Mg) 1 tab Q5M PRN SL ANGINA; Start 12/25/18 at 23:30 Fentanyl (Sublimaze) 25 mcg PACU ORDER PRN IV MILD PAIN 1-3; Start 12/26/18 at 12:30; Stop 12/26/18 at 16:30 Ondansetron HCl (Zofran Inj) 4 mg PACU ORDER PRN IV NAUSEA/VOMITING; Start 12/26/18 at 12:30; Stop 12/26/18 at 16:30 Metoclopramide HCl (Reglan) 10 mg PACU ORDER PRN IV NAUSEA/VOMITING; Start 12/26/18 at 12:30; Stop 12/26/18 at 16:30 Labetalol HCl (Labetalol) 5 mg PACU ORDER PRN IV HIGH BLOOD PRESSURE; Start 12/26/18 at 12:30; Stop 12/26/18 at 16:30 Hydralazine HCl (Apresoline) 5 mg PACU ORDER PRN IV HIGH BLOOD PRESSURE; Start 12/26/18 at 12:30; Stop 12/26/18 at 16:30 Ephedrine Sulfate 5 mg PACU ORDER PRN IV BLOOD PRESSURE SUPPORT; Start 12/26/18 at 12:30; Stop 12/26/18 at 16:30 Diphenhydramine HCl (Benadryl) 25 mg PACU ORDER PRN IV .PRURITUS; Start 12/26/18 at 12:30; Stop 12/26/18 at 16:30 KAYLYN MOSER NP Dec 26, 2018 12:54
--- NOTE | 2018-12-26 13:00 | PAC ---
Date/Time of Note Date/Time of Note DATE: 12/26/18 TIME: 13:00 Post-Anesthesia Notes Post-Anesthesia Note Last documented vital signs Vital Signs Date Temp Pulse Resp B/P (MAP) Pulse Ox O2 O2 Flow FiO2 Time Delivery Rate 12/26/18 98.0 70 18 107/60 96 Room Air 1300 (76) Activity: WNL Respiratory function: WNL Cardiovascular function: WNL Mental status: Baseline Pain reasonably controlled: Yes Hydration appropriate: Yes Nausea/Vomiting absent: Yes JULIANNA YOUNG Dec 26, 2018 13:00
[2018-12-26] MEDS: SUCRALFATE 1 GM TAB PO SCH ×3 (13:51→20:03)
--- NOTE | 2018-12-26 18:10 | PN ---
Date/Time of Note Date/Time of Note DATE: 12/26/18 TIME: 18:03 Assessment/Plan VTE Prophylaxis Risk score (from Ns)>0 risk: 0 SCD applied (from Ns): Yes Pharmacological prophylaxis: NA/contraindicated Pharm contraindication: bleeding Lines/Catheters IV [facility] Peripheral IV Urinary Cath still in place: No Assessment/Plan Hospital Course Assessment and plan 1. GI bleed. Patient for EGD. Monitor H&H. Transfuse blood products as needed. Follow-up with GI recommendations. Continue on PPI medication for now. 2.. History of BPH. Will resume on Flomax once able to tolerate oral intake. Disposition and plan. Follow-up with GI recommendations. Monitor H&H. Transfuse blood products as needed. Discussed plan of care doctor Delvin Result Diagram: 12/26/1862212/26/18 0623 Results 24hrs Laboratory Tests Test 12/25/18 21:04 12/26/18 06:23 White Blood Count 9.5 7.0 # Red Blood Count 3.64 L 3.27 L Hemoglobin 10.9 L 9.6 L Hematocrit 33.2 L 29.5 L Mean Corpuscular Volume 91.2 90.2 Mean Corpuscular Hemoglobin 29.9 29.4 Mean Corpuscular Hemoglobin Concent 32.8 32.5 Red Cell Distribution Width 12.4 12.6 Platelet Count 231 211 Mean Platelet Volume 9.8 9.7 Immature Granulocytes % 0.400 0.400 Neutrophils % 68.9 54.5 Lymphocytes % 24.4 35.8 Monocytes % 5.2 8.6 Eosinophils % 0.8 0.4 Basophils % 0.3 0.3 Nucleated Red Blood Cells % 0.0 0.0 Immature Granulocytes # 0.040 H 0.030 Neutrophils # 6.5 3.8 Lymphocytes # 2.3 2.5 Monocytes # 0.5 0.6 Eosinophils # 0.1 0.0 Basophils # 0.0 0.0 Nucleated Red Blood Cells # 0.0 0.0 Prothrombin Time 12.9 Prothrombin Time Ratio 1.0 INR International Normalized Ratio 0.96 Activated Partial Thromboplast Time 20.0 L Sodium Level 143 141 Potassium Level 3.7 4.8 Chloride Level 107 107 Carbon Dioxide Level 24 28 Anion Gap 12 6 Blood Urea Nitrogen 22 H 19 Creatinine 0.86 0.76 Est Glomerular Filtrat Rate mL/min > 60 > 60 Glucose Level 140 122 Calcium Level 9.4 9.0 Total Bilirubin 0.4 Direct Bilirubin 0.00 Indirect Bilirubin 0.4 Aspartate Amino Transf (AST/SGOT) 19 Alanine Aminotransferase (ALT/SGPT) 15 Alkaline Phosphatase 50 Troponin I < 0.012 Total Protein 6.3 Albumin 3.8 Globulin 2.50 Albumin/Globulin Ratio 1.52 Free Thyroxine 1.22 Hemoglobin A1c 5.4 Phosphorus Level 3.9 Magnesium Level 1.9 Triglycerides Level 111 Cholesterol Level 162 LDL Cholesterol, Calculated 94 HDL Cholesterol 46 Cholesterol/HDL Ratio 3.5 Thyroid Stimulating Hormone (TSH) 0.384 L Subjective 24 Hr Interval Summary Free Text/Dictation Patient for EGD Exam/Review of Systems Exam Vitals Vital Signs Date Temp Pulse Resp B/P (MAP) Pulse Ox O2 O2 Flow FiO2 Time Delivery Rate 12/26/18 70 16:00 12/26/18 98.0 20 105/66 92 Room Air 15:51 (79) Intake and Output 12/25/18 12/25/18 12/26/18 1515:00 23:00 07:00 IntakeIntake Total 1860 ml BalanceBalance 1860 ml Exam patient for EGD Results Results 24hrs Laboratory Tests Test 12/25/18 21:04 12/26/18 06:23 White Blood Count 9.5 7.0 # Red Blood Count 3.64 L 3.27 L Hemoglobin 10.9 L 9.6 L Hematocrit 33.2 L 29.5 L Mean Corpuscular Volume 91.2 90.2 Mean Corpuscular Hemoglobin 29.9 29.4 Mean Corpuscular Hemoglobin Concent 32.8 32.5 Red Cell Distribution Width 12.4 12.6 Platelet Count 231 211 Mean Platelet Volume 9.8 9.7 Immature Granulocytes % 0.400 0.400 Neutrophils % 68.9 54.5 Lymphocytes % 24.4 35.8 Monocytes % 5.2 8.6 Eosinophils % 0.8 0.4 Basophils % 0.3 0.3 Nucleated Red Blood Cells % 0.0 0.0 Immature Granulocytes # 0.040 H 0.030 Neutrophils # 6.5 3.8 Lymphocytes # 2.3 2.5 Monocytes # 0.5 0.6 Eosinophils # 0.1 0.0 Basophils # 0.0 0.0 Nucleated Red Blood Cells # 0.0 0.0 Prothrombin Time 12.9 Prothrombin Time Ratio 1.0 INR International Normalized Ratio 0.96 Activated Partial Thromboplast Time 20.0 L Sodium Level 143 141 Potassium Level 3.7 4.8 Chloride Level 107 107 Carbon Dioxide Level 24 28 Anion Gap 12 6 Blood Urea Nitrogen 22 H 19 Creatinine 0.86 0.76 Est Glomerular Filtrat Rate mL/min > 60 > 60 Glucose Level 140 122 Calcium Level 9.4 9.0 Total Bilirubin 0.4 Direct Bilirubin 0.00 Indirect Bilirubin 0.4 Aspartate Amino Transf (AST/SGOT) 19 Alanine Aminotransferase (ALT/SGPT) 15 Alkaline Phosphatase 50 Troponin I < 0.012 Total Protein 6.3 Albumin 3.8 Globulin 2.50 Albumin/Globulin Ratio 1.52 Free Thyroxine 1.22 Hemoglobin A1c 5.4 Phosphorus Level 3.9 Magnesium Level 1.9 Triglycerides Level 111 Cholesterol Level 162 LDL Cholesterol, Calculated 94 HDL Cholesterol 46 Cholesterol/HDL Ratio 3.5 Thyroid Stimulating Hormone (TSH) 0.384 L Medications Medication Current Medications IV Flush (NS 3 ml) 3 ml PER PROTOCOL IV ; Start 12/25/18 at 23:30 Ondansetron HCl (Zofran Inj) 4 mg Q6H PRN IV NAUSEA/VOMITING; Start 12/25/18 at 23:30 Acetaminophen (Tylenol Tab) 650 mg Q6H PRN PO .PAIN 1-3 OR TEMP; Start 12/25/18 at 23:30 Acetaminophen/ Hydrocodone Bitart ([place] (5/325)) 1 tab Q6H PRN PO .MOD PAIN 4- 6; Start 12/25/18 at 23:30 Morphine Sulfate (morphine) 2 mg Q4H PRN IV .SEVERE PAIN 7-10; Start 12/25/18 at 23:30 Docusate Sodium (Colace) 100 mg Q12H PRN PO .CONSTIPATION; Start 12/25/18 at 23:30 Magnesium Hydroxide (Milk Of Mag) 30 ml DAILY PRN PO .CONSTIPATION; Start 12/25/18 at 23:30 Pantoprazole (Protonix Iv) 40 mg BID@0600,1800 IV Last administered on 12/26/18at 17:11; Admin Dose 40 MG; Start 12/26/18 at 06:00 Lorazepam (Ativan) 0.5 mg Q6H PRN IV ANXIETY; Start 12/25/18 at 23:30 Sodium Chloride 1,000 ml @ 100 mls/hr Q10H IV Last administered on 12/26/18at 09:42; Admin Dose 100 MLS/HR; Start 12/25/18 at 23:04 Albuterol/ Ipratropium (Duoneb) 3 ml Q4H RESP THERAPY PRN HHN SHORTNESS OF BREATH; Start 12/25/18 at 23:30 Hydralazine HCl (Apresoline) 10 mg Q6H PRN IV ELEVATED BLOOD PRESSURE; Start 12/25/18 at 23:30 Nitroglycerin (Nitroglycerin (Sl Tab) 0.4 Mg) 1 tab Q5M PRN SL ANGINA; Start 12/25/18 at 23:30 Sucralfate (Carafate) 1 gm QID PO Last administered on 12/26/18at 17:11; Admin Dose 1 GM; Start 12/26/18 at 13:00 KAYLYN MOSER NP Dec 26, 2018 18:10
[2018-12-27] VITALS (12 sets, daily range): BP systolic 106–142; BP diastolic 56–69; PULSE 63–99; RESP 20
[2018-12-27] MEDS: ACETAMINOPHEN 325 MG TAB PO PRN ×2 (00:05→08:27)
[2018-12-27] MEDS: SOD CHLORIDE 0.9% 1,000 ML IV SCH ×4 (01:53→18:37)
[2018-12-27] MEDS: PANTOPRAZOLE 40 MG INJ IV SCH ×2 (05:21→17:06)
[2018-12-27] MEDS: SUCRALFATE 1 GM TAB PO SCH ×4 (08:27→20:59)
--- NOTE | 2018-12-27 12:24 | PN ---
Date/Time of Note Date/Time of Note DATE: 12/27/18 TIME: 12:22 Assessment/Plan VTE Prophylaxis Risk score (from [facility])>0 risk: 3 SCD applied (from Ns): Yes Pharmacological prophylaxis: NA/contraindicated Pharm contraindication: other (anemia) Lines/Catheters [facility] Saline Lock Urinary Cath still in place: No Assessment/Plan Hospital Course Assessment and plan 1. GI bleed. - s/p EGD 12/27/18. - Monitor H&H. Transfuse blood products as needed. - Follow-up with ulcer biopsy. - continue PPI. 2.. History of BPH. - resume flomax Disposition and plan. Follow-up on gastric biopsies. Monitor H&H and labs. Continue Protonix. DC when cleared by consultants. Discussed plan of care doctor Hargrove Result Diagram: 12/27/18 0537 12/27/18 0537 Results 24hrs Laboratory Tests Test 12/26/18 18:10 12/27/18 00:46 12/27/18 05:37 Hemoglobin 8.8 L 7.7 L 8.2 L Hematocrit 26.6 L 23.5 L 25.4 L White Blood Count 6.1 Red Blood Count 2.83 L Mean Corpuscular Volume 89.8 Mean Corpuscular Hemoglobin 29.0 Mean Corpuscular Hemoglobin Concent 32.3 Red Cell Distribution Width 12.6 Platelet Count 190 Mean Platelet Volume 9.9 Immature Granulocytes % 0.500 H Neutrophils % 43.1 Lymphocytes % 46.8 Monocytes % 7.0 Eosinophils % 2.1 Basophils % 0.5 Nucleated Red Blood Cells % 0.0 Immature Granulocytes # 0.030 Neutrophils # 2.6 Lymphocytes # 2.9 Monocytes # 0.4 Eosinophils # 0.1 Basophils # 0.0 Nucleated Red Blood Cells # 0.0 Sodium Level 140 Potassium Level 3.7 Chloride Level 111 H Carbon Dioxide Level 25 Anion Gap 4 L Blood Urea Nitrogen 13 Creatinine 0.77 Est Glomerular Filtrat Rate mL/min > 60 Glucose Level 102 Calcium Level 8.4 Subjective 24 Hr Interval Summary Free Text/Dictation No further reports of bleeding or hemoptysis at this time. Comfortable at present. Denies any pain. Exam/Review of Systems Exam Vitals Vital Signs Date Temp Pulse Resp B/P (MAP) Pulse Ox O2 O2 Flow FiO2 Time Delivery Rate 12/27/18 98.1 73 20 116/58 93 11:02 (77) 12/26/18 Room Air 15:51 Intake and Output 12/26/18 12/26/18 12/27/18 1515:00 23:00 07:00 IntakeIntake Total 1820 ml 850 ml BalanceBalance 1820 ml 850 ml Constitutional: alert, oriented, obese Psych: no complaints Neck: supple, non-tender Respiratory: clear to auscultation Cardiovascular: regular rate and rhythm Gastrointestinal: soft, non-tender Musculoskeletal: nl extremities to inspection Neurological: LEATHER SCRAPER II-XII intact, nl mental status, nl speech Results Results 24hrs Laboratory Tests Test 12/26/18 18:10 12/27/18 00:46 12/27/18 05:37 Hemoglobin 8.8 L 7.7 L 8.2 L Hematocrit 26.6 L 23.5 L 25.4 L White Blood Count 6.1 Red Blood Count 2.83 L Mean Corpuscular Volume 89.8 Mean Corpuscular Hemoglobin 29.0 Mean Corpuscular Hemoglobin Concent 32.3 Red Cell Distribution Width 12.6 Platelet Count 190 Mean Platelet Volume 9.9 Immature Granulocytes % 0.500 H Neutrophils % 43.1 Lymphocytes % 46.8 Monocytes % 7.0 Eosinophils % 2.1 Basophils % 0.5 Nucleated Red Blood Cells % 0.0 Immature Granulocytes # 0.030 Neutrophils # 2.6 Lymphocytes # 2.9 Monocytes # 0.4 Eosinophils # 0.1 Basophils # 0.0 Nucleated Red Blood Cells # 0.0 Sodium Level 140 Potassium Level 3.7 Chloride Level 111 H Carbon Dioxide Level 25 Anion Gap 4 L Blood Urea Nitrogen 13 Creatinine 0.77 Est Glomerular Filtrat Rate mL/min > 60 Glucose Level 102 Calcium Level 8.4 Medications Medication Current Medications IV Flush (NS 3 ml) 3 ml PER PROTOCOL IV ; Start 12/25/18 at 23:30 Ondansetron HCl (Zofran Inj) 4 mg Q6H PRN IV NAUSEA/VOMITING; Start 12/25/18 at 23:30 Acetaminophen (Tylenol Tab) 650 mg Q6H PRN PO .PAIN 1-3 OR TEMP Last administered on 12/27/18at 08:27; Admin Dose 650 MG; Start 12/25/18 at 23:30 Acetaminophen/ Hydrocodone Bitart ([place] (5/325)) 1 tab Q6H PRN PO .MOD PAIN 4- 6; Start 12/25/18 at 23:30 Morphine Sulfate (morphine) 2 mg Q4H PRN IV .SEVERE PAIN 7-10; Start 12/25/18 at 23:30 Docusate Sodium (Colace) 100 mg Q12H PRN PO .CONSTIPATION; Start 12/25/18 at 23:30 Magnesium Hydroxide (Milk Of Mag) 30 ml DAILY PRN PO .CONSTIPATION; Start 12/25/18 at 23:30 Pantoprazole (Protonix Iv) 40 mg BID@0600,1800 IV Last administered on 12/27/18at 05:21; Admin Dose 40 MG; Start 12/26/18 at 06:00 Lorazepam (Ativan) 0.5 mg Q6H PRN IV ANXIETY; Start 12/25/18 at 23:30 Sodium Chloride 1,000 ml @ 100 mls/hr Q10H IV Last administered on 12/27/18at 08:27; Admin Dose 100 MLS/HR; Start 12/25/18 at 23:04 Albuterol/ Ipratropium (Duoneb) 3 ml Q4H RESP THERAPY PRN HHN SHORTNESS OF BREATH; Start 12/25/18 at 23:30 Hydralazine HCl (Apresoline) 10 mg Q6H PRN IV ELEVATED BLOOD PRESSURE; Start 12/25/18 at 23:30 Nitroglycerin (Nitroglycerin (Sl Tab) 0.4 Mg) 1 tab Q5M PRN SL ANGINA; Start 12/25/18 at 23:30 Sucralfate (Carafate) 1 gm QID PO Last administered on 12/27/18at 08:27; Admin Dose 1 GM; Start 12/26/18 at 13:00 KAYLYN MOSER NP Dec 27, 2018 12:24
--- NOTE | 2018-12-27 16:52 | PN ---
Date/Time of Note Date/Time of Note DATE: 12/27/18 TIME: 16:43 Assessment/Plan VTE Prophylaxis Risk score (from Ns)>0 risk: 3 SCD applied (from Ns): Yes Pharmacological prophylaxis: NA/contraindicated Pharm contraindication: bleeding Lines/Catheters IV [facility] (from [facility] Saline Lock Urinary Cath still in place: No Assessment/Plan Assessment/Plan Assessment: GI bleeding/hematemesis. s/p EGD 12/26/18 -large deep gastric ulcer with prior stigmata of bleeding - biopsies obtained to r/o gastric cancer Moderate anemia. Plan: Follow up results of gastric biopsy when available. Advanced diet. CT abdomen and pelvis Continue PPI protonix and carafate Monitor CBC and transfuse as needed for Hgb less than 7.5 Patient seen in collaboration with Dr. Danielson Subjective: Patient feels well after EGD. Having multiple bowel movements though denies bleeding. Discussed findings of EGD. Will await biopsies. Will obtain CT scan given concern for possible gastric cancer. Discussed with daughter Tosin over the phone. PHYSICAL EXAMINATION: GENERAL: Well developed, well nourished, alert & oriented x 3, in no acute distress SKIN: No lesions, no stigmata chronic liver disease, no evidence of bleeding diathesis LYMPHATIC: No palpable lymphadenopathy. HEAD: Normocephalic, atraumatic, no tenderness. EYES: Pupils equal reactive to light and accommodation, full extraocular movements, sclera clear, non-icteric, no discharge. EARS/NOSE AND THROAT: Ears normal, nose normal, oropharynx normal, oral membranes well hydrated without lesions. NECK: Supple, no masses, thyroid normal, JVP within normal limits, carotids normal without bruits. CHEST: Inspection within normal limits. CARDIOVASCULAR: Heart: Regular rate and rhythm, no murmurs, gallops or rubs. Peripheral pulses present within normal limits, no cyanosis, clubbing or edemas. No pulsatile abdominal mass RESPIRATORY: Lungs clear to auscultation and percussion, no wheezing, no rubs GASTROINTESTINAL AND LIVER: Abdomen: Soft, non tenderness, non-distended, no hernias, no masses, no organomegaly, no ascites, no guarding, no rebound tenderness, normoactive bowel sounds. Rectal: Deferred. EXTREMITIES: No cyanosis, clubbing or edema. [MUSCULO-SKELETAL: Gait and station within normal limits, range of motion adequate.] [NEUROLOGIC: Cranial nerves II-XII intact, Motor within normal limits, Sensory within normal limits. Reflexes within normal limits. PSYCHIATRIC: Alert & oriented x 3, mood/affect/judgement adequate] Result Diagram: 12/27/18 1352 12/27/18 0537 Results 24hrs Laboratory Tests Test 12/26/18 18:10 12/27/18 00:46 12/27/18 05:37 12/27/18 13:52 Hemoglobin 8.8 L 7.7 L 8.2 L 8.0 L Hematocrit 26.6 L 23.5 L 25.4 L 24.4 L White Blood Count 6.1 Red Blood Count 2.83 L Mean Corpuscular Volume 89.8 Mean Corpuscular 29.0 Hemoglobin Mean Corpuscular 32.3 Hemoglobin Concent Red Cell Distribution 12.6 Width Platelet Count 190 Mean Platelet Volume 9.9 Immature Granulocytes % 0.500 H Neutrophils % 43.1 Lymphocytes % 46.8 Monocytes % 7.0 Eosinophils % 2.1 Basophils % 0.5 Nucleated Red Blood 0.0 Cells % Immature Granulocytes # 0.030 Neutrophils # 2.6 Lymphocytes # 2.9 Monocytes # 0.4 Eosinophils # 0.1 Basophils # 0.0 Nucleated Red Blood 0.0 Cells # Sodium Level 140 Potassium Level 3.7 Chloride Level 111 H Carbon Dioxide Level 25 Anion Gap 4 L Blood Urea Nitrogen 13 Creatinine 0.77 Est Glomerular Filtrat > 60 Rate mL/min Glucose Level 102 Calcium Level 8.4 CC: CONG DANIELSON MD ; Exam/Review of Systems Exam Vitals Vital Signs Date Temp Pulse Resp B/P (MAP) Pulse Ox O2 O2 Flow FiO2 Time Delivery Rate 12/27/18 98.3 64 20 120/66 95 15:06 (84) 12/26/18 Room Air 15:51 Intake and Output 12/26/18 12/26/18 12/27/18 1515:00 23:00 07:00 IntakeIntake Total 1820 ml 850 ml BalanceBalance 1820 ml 850 ml Results Results 24hrs Laboratory Tests Test 12/26/18 18:10 12/27/18 00:46 12/27/18 05:37 12/27/18 13:52 Hemoglobin 8.8 L 7.7 L 8.2 L 8.0 L Hematocrit 26.6 L 23.5 L 25.4 L 24.4 L White Blood Count 6.1 Red Blood Count 2.83 L Mean Corpuscular Volume 89.8 Mean Corpuscular 29.0 Hemoglobin Mean Corpuscular 32.3 Hemoglobin Concent Red Cell Distribution 12.6 Width Platelet Count 190 Mean Platelet Volume 9.9 Immature Granulocytes % 0.500 H Neutrophils % 43.1 Lymphocytes % 46.8 Monocytes % 7.0 Eosinophils % 2.1 Basophils % 0.5 Nucleated Red Blood 0.0 Cells % Immature Granulocytes # 0.030 Neutrophils # 2.6 Lymphocytes # 2.9 Monocytes # 0.4 Eosinophils # 0.1 Basophils # 0.0 Nucleated Red Blood 0.0 Cells # Sodium Level 140 Potassium Level 3.7 Chloride Level 111 H Carbon Dioxide Level 25 Anion Gap 4 L Blood Urea Nitrogen 13 Creatinine 0.77 Est Glomerular Filtrat > 60 Rate mL/min Glucose Level 102 Calcium Level 8.4 Medications Medication Current Medications IV Flush (NS 3 ml) 3 ml PER PROTOCOL IV ; Start 12/25/18 at 23:30 Ondansetron HCl (Zofran Inj) 4 mg Q6H PRN IV NAUSEA/VOMITING; Start 12/25/18 at 23:30 Acetaminophen (Tylenol Tab) 650 mg Q6H PRN PO .PAIN 1-3 OR TEMP Last administered on 12/27/18at 08:27; Admin Dose 650 MG; Start 12/25/18 at 23:30 Acetaminophen/ Hydrocodone Bitart ([place] (5/325)) 1 tab Q6H PRN PO .MOD PAIN 4- 6; Start 12/25/18 at 23:30 Morphine Sulfate (morphine) 2 mg Q4H PRN IV .SEVERE PAIN 7-10; Start 12/25/18 at 23:30 Docusate Sodium (Colace) 100 mg Q12H PRN PO .CONSTIPATION; Start 12/25/18 at 23:30 Magnesium Hydroxide (Milk Of Mag) 30 ml DAILY PRN PO .CONSTIPATION; Start 12/25/18 at 23:30 Pantoprazole (Protonix Iv) 40 mg BID@0600,1800 IV Last administered on 12/27/18at 05:21; Admin Dose 40 MG; Start 12/26/18 at 06:00 Lorazepam (Ativan) 0.5 mg Q6H PRN IV ANXIETY; Start 12/25/18 at 23:30 Sodium Chloride 1,000 ml @ 100 mls/hr Q10H IV Last administered on 12/27/18at 08:27; Admin Dose 100 MLS/HR; Start 12/25/18 at 23:04 Albuterol/ Ipratropium (Duoneb) 3 ml Q4H RESP THERAPY PRN HHN SHORTNESS OF BREATH; Start 12/25/18 at 23:30 Hydralazine HCl (Apresoline) 10 mg Q6H PRN IV ELEVATED BLOOD PRESSURE; Start at 23:30 Nitroglycerin (Nitroglycerin (Sl Tab) 0.4 Mg) 1 tab Q5M PRN SL ANGINA; Start 12/25/18 at 23:30 Sucralfate (Carafate) 1 gm QID PO Last administered on 12/27/18at 12:53; Admin Dose 1 GM; Start 12/26/18 at 13:00 JB MARQUEZ NP Dec 27, 2018 16:52
[2018-12-27] MEDS ORDERED: IOHEXOL 14.3 MG(I)/ML (ADULT) BTL PO ONE (17:00)
[2018-12-27] MEDS ORDERED: IOHEXOL 300MG/ML 150 ML BTL ONE (20:36)
[2018-12-27] MEDS ORDERED: SOD CHLORIDE 0.9% 100 ML ONE (20:36)
[2018-12-28] VITALS (12 sets, daily range): BP systolic 106–127; BP diastolic 55–64; PULSE 62–106; RESP 18–20
[2018-12-28] MEDS: PANTOPRAZOLE 40 MG INJ IV SCH ×2 (05:04→17:11)
[2018-12-28] MEDS: SOD CHLORIDE 0.9% 1,000 ML IV SCH ×3 (05:04→14:57)
[2018-12-28] MEDS: SUCRALFATE 1 GM TAB PO SCH ×4 (08:11→20:23)
--- NOTE | 2018-12-28 15:29 | PN ---
Date/Time of Note Date/Time of Note DATE: 12/28/18 TIME: 15:27 Assessment/Plan VTE Prophylaxis Risk score (from Ns)>0 risk: 3 SCD applied (from Ns): Yes Pharmacological prophylaxis: other (scds) Lines/Catheters [facility] Saline Lock Urinary Cath still in place: No Assessment/Plan Hospital Course Assessment: GI bleeding/hematemesis. s/p EGD 12/26/18 -large deep gastric ulcer with prior stigmata of bleeding - biopsies obtained to r/o gastric cancer Moderate anemia. Plan: Follow up results of gastric biopsy when available. Regular diet CT abdomen and pelvis- noted Continue PPI and Carafate Monitor CBC and transfuse as needed for Hgb less than 7.5 Patient seen in collaboration with Dr. Danielson Subjective: No over night events HGB is stable, awaiting pathology results Planes of nausea/vomiting or abdominal pain. Patient tolerating regular diet well PHYSICAL EXAMINATION: GENERAL: Alert & oriented x 3, in no acute distress SKIN: No lesions. NECK: Supple, no masses. CHEST: Inspection within normal limits. CARDIOVASCULAR: Heart: Regular rate and rhythm RESPIRATORY: Lungs clear to auscultation GASTROINTESTINAL AND LIVER: Abdomen: Soft, non tenderness, non-distended, no hernias, no masses, no organomegaly, no ascites, no guarding, no rebound tenderness, normoactive bowel sounds. Rectal: Deferred. EXTREMITIES: No cyanosis, clubbing or edema. Result Diagram: 12/28/18 1314 12/28/18 0520 Results 24hrs Laboratory Tests Test 12/27/18 20:05 12/28/18 00:28 12/28/18 05:20 12/28/18 13:14 Hemoglobin 9.4 L 8.1 L 8.2 L 8.6 L Hematocrit 28.7 L 24.6 L 25.1 L 25.9 L White Blood Count 6.9 Red Blood Count 2.78 L Mean Corpuscular 90.3 Volume Mean Corpuscular 29.5 Hemoglobin Mean Corpuscular 32.7 Hemoglobin Concent Red Cell Distribution 12.5 Width Platelet Count 219 Mean Platelet Volume 9.8 Immature Granulocytes 0.400 % Neutrophils % 46.2 Lymphocytes % 42.0 Monocytes % 8.3 Eosinophils % 2.5 Basophils % 0.6 Nucleated Red Blood 0.0 Cells % Immature Granulocytes 0.030 # Neutrophils # 3.2 Lymphocytes # 2.9 Monocytes # 0.6 Eosinophils # 0.2 Basophils # 0.0 Nucleated Red Blood 0.0 Cells # Sodium Level 141 Potassium Level 4.3 Chloride Level 108 Carbon Dioxide Level 27 Anion Gap 6 Blood Urea Nitrogen 14 Creatinine 0.74 Est Glomerular > 60 Filtrat Rate mL/min Glucose Level 106 Calcium Level 8.7 Free Thyroxine 1.08 Free Triiodothyronine 3.54 (T3) pg/mL Exam/Review of Systems Exam Vitals Vital Signs Date Temp Pulse Resp B/P (MAP) Pulse Ox O2 O2 Flow FiO2 Time Delivery Rate 12/28/18 76 12:48 12/28/18 98.3 20 106/55 95 10:59 (72) 12/26/18 Room Air 15:51 Intake and Output 12/27/18 12/27/18 12/28/18 1515:00 23:00 07:00 IntakeIntake Total 3470 ml 620 ml BalanceBalance 3470 ml 620 ml Results Results 24hrs Laboratory Tests Test 12/27/18 20:05 12/28/18 00:28 12/28/18 05:20 12/28/18 13:14 Hemoglobin 9.4 L 8.1 L 8.2 L 8.6 L Hematocrit 28.7 L 24.6 L 25.1 L 25.9 L White Blood Count 6.9 Red Blood Count 2.78 L Mean Corpuscular 90.3 Volume Mean Corpuscular 29.5 Hemoglobin Mean Corpuscular 32.7 Hemoglobin Concent Red Cell Distribution 12.5 Width Platelet Count 219 Mean Platelet Volume 9.8 Immature Granulocytes 0.400 % Neutrophils % 46.2 Lymphocytes % 42.0 Monocytes % 8.3 Eosinophils % 2.5 Basophils % 0.6 Nucleated Red Blood 0.0 Cells % Immature Granulocytes 0.030 # Neutrophils # 3.2 Lymphocytes # 2.9 Monocytes # 0.6 Eosinophils # 0.2 Basophils # 0.0 Nucleated Red Blood 0.0 Cells # Sodium Level 141 Potassium Level 4.3 Chloride Level 108 Carbon Dioxide Level 27 Anion Gap 6 Blood Urea Nitrogen 14 Creatinine 0.74 Est Glomerular > 60 Filtrat Rate mL/min Glucose Level 106 Calcium Level 8.7 Free Thyroxine 1.08 Free Triiodothyronine 3.54 (T3) pg/mL Medications Medication Current Medications IV Flush (NS 3 ml) 3 ml PER PROTOCOL IV ; Start 12/25/18 at 23:30 Ondansetron HCl (Zofran Inj) 4 mg Q6H PRN IV NAUSEA/VOMITING; Start 12/25/18 at 23:30 Acetaminophen (Tylenol Tab) 650 mg Q6H PRN PO .PAIN 1-3 OR TEMP Last administered on 12/27/18 08:27; Admin Dose 650 MG; Start 12/25/18 at 23:30 Acetaminophen/ Hydrocodone Bitart ([place] (5/325)) 1 tab Q6H PRN PO .MOD PAIN 4- 6; Start 12/25/18 at 23:30 Morphine Sulfate (morphine) 2 mg Q4H PRN IV .SEVERE PAIN 7-10; Start 12/25/18 at 23:30 Docusate Sodium (Colace) 100 mg Q12H PRN PO .CONSTIPATION; Start 12/25/18 at 23:30 Magnesium Hydroxide (Milk Of Mag) 30 ml DAILY PRN PO .CONSTIPATION; Start 12/25/18 at 23:30 Pantoprazole (Protonix Iv) 40 mg BID@0600,1800 IV Last administered on 12/28/18at 05:04; Admin Dose 40 MG; Start 12/26/18 at 06:00 Lorazepam (Ativan) 0.5 mg Q6H PRN IV ANXIETY; Start 12/25/18 at 23:30 Sodium Chloride 1,000 ml @ 100 mls/hr Q10H IV Last administered on 12/28/18at 14:57; Admin Dose 100 MLS/HR; Start 12/25/18 at 23:04 Albuterol/ Ipratropium (Duoneb) 3 ml Q4H RESP THERAPY PRN HHN SHORTNESS OF BREATH; Start 12/25/18 at 23:30 Hydralazine HCl (Apresoline) 10 mg Q6H PRN IV ELEVATED BLOOD PRESSURE; Start 12/25/18 at 23:30 Nitroglycerin (Nitroglycerin (Sl Tab) 0.4 Mg) 1 tab Q5M PRN SL ANGINA; Start 12/25/18 at 23:30 Sucralfate (Carafate) 1 gm QID PO Last administered on 12/28/18at 12:05; Admin Dose 1 GM; Start 12/26/18 at 13:00 CLAUDY DÍAZ Dec 28, 2018 15:29
--- NOTE | 2018-12-28 16:05 | DS ---
Date/Time of Note Date/Time of Note DATE: 12/28/18 TIME: 16:02 Discharge Summary Admission/Discharge Info Admit Date/Time Dec 25, 2018 at 22:57 Discharge Date/Time Discharge Diagnosis Peptic ulcer Gi bleeding Patient Condition: Stable Hospital Course Make an appointment with Dr Danielson to review the results of your biopsy. His number is Take your antiacid medications as prescribed Return to the emergency room if you have any concerning symptoms Home Meds Reported Medications Tamsulosin Hcl* (Flomax*) 0.4 Mg Cap.er.24h, 0.4 MG PO DAILY, CAP 12/26/18 Acetaminophen with Codeine (Acetaminophen-Cod #3 Tablet) 1 Each Tablet, 1 TAB PO Q6H, #7 TAB 12/26/18 Levofloxacin* (Levofloxacin*) 500 Mg Tablet, 500 MG PO DAILY, TAB 12/26/18 Omeprazole* (Omeprazole*) 40 Mg Capsule., 40 MG PO DAILY, #30 CAP 12/26/18 Primary Care Provider Not On Staff Doctor Pending Labs Laboratory Tests Test 12/27/18 20:05 12/28/18 00:28 12/28/18 05:20 12/28/18 13:14 Hemoglobin 9.4 8.1 8.2 8.6 g/dl (14.0-18.0 g/dl (14.0-18. g/dl (14.0-18. g/dl (14.0-18. ) 0) 0) 0) Hematocrit 28.7 24.6 25.1 25.9 % (42.0-52.0) % (42.0-52.0) % (42.0-52.0) % (42.0-52.0) White Blood 6.9 Count 10^3/ul (4.8-1 0.8) Red Blood 2.78 Count 10^6/ul (4.70- 6.10) Mean 90.3 Corpuscular fl (82.0-101.0 Volume ) Mean 29.5 Corpuscular pg (29.0-33.0) Hemoglobin Mean 32.7 Corpuscular g/dl (32.0-37. Hemoglobin Conc 0) ent Red Cell 12.5 Distribution % (11.5-14.5) Width Platelet Count 219 10^3/UL (140-4 15) Mean Platelet 9.8 Volume fl (7.4-10.4) Immature 0.400 Granulocytes % % (0.001-0.429 ) Neutrophils % 46.2 % (39.0-77.0) Lymphocytes % 42.0 % (15.0-51.0) Monocytes % 8.3 % (0.0-11.0) Eosinophils % 2.5 % (0.0-7.0) Basophils % 0.6 % (0.0-2.0) Nucleated Red 0.0 Blood Cells % /100WBC (0.0-0 .0) Immature 0.030 Granulocytes # 10^3/ul (0.0-0 .031) Neutrophils # 3.2 10^3/ul (1.6-7 .5) Lymphocytes # 2.9 10^3/ul (0.8-2 .9) Monocytes # 0.6 10^3/ul (0.3-0 .9) Eosinophils # 0.2 10^3/ul (0.0-0 .5) Basophils # 0.0 10^3/ul (0.0-0 .1) Nucleated Red 0.0 Blood Cells # 10^3/ul (0.0-0 .0) Sodium Level 141 mmol/L (135-14 4) Potassium 4.3 Level mmol/L (3.5-5. 1) Chloride Level 108 mmol/L (97-110 ) Carbon Dioxide 27 Level mmol/L (21-31) Anion Gap 6 (5-13) Blood Urea 14 Nitrogen mg/dl (7-20) Creatinine 0.74 mg/dl (0.61-1. 24) Est Glomerular > 60 Filtrat mL/min (>60) Rate mL/min Glucose Level 106 mg/dl (70-220) Calcium Level 8.7 mg/dl (8.4-10. 2) Free Thyroxine 1.08 ng/dl (0.78-2. 44) Free 3.54 Triiodothyronin pg/ml (2.77-5. e (T3) pg/mL 27) MAYITO MAHAN MD Dec 28, 2018 16:05
--- NOTE | 2018-12-28 16:08 | PN ---
Date/Time of Note Date/Time of Note DATE: 12/28/18 TIME: 16:07 Assessment/Plan VTE Prophylaxis Risk score (from Ns)>0 risk: 3 SCD applied (from Ns): Yes Pharmacological prophylaxis: heparin Lines/Catheters IV [facility] (from [facility]): Saline Lock Urinary Cath still in place: No Assessment/Plan Hospital Course 68 yo male with acute blood loss anemia from GI bleeding - S/p endoscopy showing gastric ulcer, concerning for malignancy. Continue PPI. Await pathology Result Diagram: 12/28/18 1314 12/28/18 0520 Results 24hrs Laboratory Tests Test 12/27/18 20:05 12/28/18 00:28 12/28/18 05:20 12/28/18 13:14 Hemoglobin 9.4 L 8.1 L 8.2 L 8.6 L Hematocrit 28.7 L 24.6 L 25.1 L 25.9 L White Blood Count 6.9 Red Blood Count 2.78 L Mean Corpuscular 90.3 Volume Mean Corpuscular 29.5 Hemoglobin Mean Corpuscular 32.7 Hemoglobin Concent Red Cell Distribution 12.5 Width Platelet Count 219 Mean Platelet Volume 9.8 Immature Granulocytes 0.400 % Neutrophils % 46.2 Lymphocytes % 42.0 Monocytes % 8.3 Eosinophils % 2.5 Basophils % 0.6 Nucleated Red Blood 0.0 Cells % Immature Granulocytes 0.030 # Neutrophils # 3.2 Lymphocytes # 2.9 Monocytes # 0.6 Eosinophils # 0.2 Basophils # 0.0 Nucleated Red Blood 0.0 Cells # Sodium Level 141 Potassium Level 4.3 Chloride Level 108 Carbon Dioxide Level 27 Anion Gap 6 Blood Urea Nitrogen 14 Creatinine 0.74 Est Glomerular > 60 Filtrat Rate mL/min Glucose Level 106 Calcium Level 8.7 Free Thyroxine 1.08 Free Triiodothyronine 3.54 (T3) pg/mL Subjective 24 Hr Interval Summary Free Text/Dictation No further bleeding CT A/P noted, large ulcer, no evidence of metastatic cancer Exam/Review of Systems Exam Vitals Vital Signs Date Temp Pulse Resp B/P (MAP) Pulse Ox O2 O2 Flow FiO2 Time Delivery Rate 12/28/18 98.3 80 20 123/64 96 15:52 (83) 12/26/18 Room Air 15:51 Intake and Output 12/27/18 12/27/18 12/28/18 1515:00 23:00 07:00 IntakeIntake Total 3470 ml 620 ml BalanceBalance 3470 ml 620 ml Results Results 24hrs Laboratory Tests Test 12/27/18 20:05 12/28/18 00:28 12/28/18 05:20 12/28/18 13:14 Hemoglobin 9.4 L 8.1 L 8.2 L 8.6 L Hematocrit 28.7 L 24.6 L 25.1 L 25.9 L White Blood Count 6.9 Red Blood Count 2.78 L Mean Corpuscular 90.3 Volume Mean Corpuscular 29.5 Hemoglobin Mean Corpuscular 32.7 Hemoglobin Concent Red Cell Distribution 12.5 Width Platelet Count 219 Mean Platelet Volume 9.8 Immature Granulocytes 0.400 % Neutrophils % 46.2 Lymphocytes % 42.0 Monocytes % 8.3 Eosinophils % 2.5 Basophils % 0.6 Nucleated Red Blood 0.0 Cells % Immature Granulocytes 0.030 # Neutrophils # 3.2 Lymphocytes # 2.9 Monocytes # 0.6 Eosinophils # 0.2 Basophils # 0.0 Nucleated Red Blood 0.0 Cells # Sodium Level 141 Potassium Level 4.3 Chloride Level 108 Carbon Dioxide Level 27 Anion Gap 6 Blood Urea Nitrogen 14 Creatinine 0.74 Est Glomerular > 60 Filtrat Rate mL/min Glucose Level 106 Calcium Level 8.7 Free Thyroxine 1.08 Free Triiodothyronine 3.54 (T3) pg/mL Medications Medication Current Medications IV Flush (NS 3 ml) 3 ml PER PROTOCOL IV ; Start 12/25/18 at 23:30 Ondansetron HCl (Zofran Inj) 4 mg Q6H PRN IV NAUSEA/VOMITING; Start 12/25/18 at 23:30 Acetaminophen (Tylenol Tab) 650 mg Q6H PRN PO .PAIN 1-3 OR TEMP Last ad ministered on 12/27/18at 08:27; Admin Dose 650 MG; Start 12/25/18 at 23:30 Acetaminophen/ Hydrocodone Bitart ([place] (5/325)) 1 tab Q6H PRN PO .MOD PAIN 4- 6; Start 12/25/18 at 23:30 Morphine Sulfate (morphine) 2 mg Q4H PRN IV .SEVERE PAIN 7-10; Start 12/25/18 at 23:30 Docusate Sodium (Colace) 100 mg Q12H PRN PO .CONSTIPATION; Start 12/25/18 at 23:30 Magnesium Hydroxide (Milk Of Mag) 30 ml DAILY PRN PO .CONSTIPATION; Start 12/25/18 at 23:30 Pantoprazole (Protonix Iv) 40 mg BID@0600,1800 IV Last administered on 12/28/18at 05:04; Admin Dose 40 MG; Start 12/26/18 at 06:00 Lorazepam (Ativan) 0.5 mg Q6H PRN IV ANXIETY; Start 12/25/18 at 23:30 Sodium Chloride 1,000 ml @ 100 mls/hr Q10H IV Last administered on 12/28/18at 14:57; Admin Dose 100 MLS/HR; Start 12/25/18 at 23:04 Albuterol/ Ipratropium (Duoneb) 3 ml Q4H RESP THERAPY PRN HHN SHORTNESS OF BREATH; Start 12/25/18 at 23:30 Hydralazine HCl (Apresoline) 10 mg Q6H PRN IV ELEVATED BLOOD PRESSURE; Start 12/25/18 at 23:30 Nitroglycerin (Nitroglycerin (Sl Tab) 0.4 Mg) 1 tab Q5M PRN SL ANGINA; Start 12/25/18 at 23:30 Sucralfate (Carafate) 1 gm QID PO Last administered on 12/28/18at 12:05; Admin Dose 1 GM; Start 12/26/18 at 13:00 MAYITO MAHAN MD Dec 28, 2018 16:08
[2018-12-28] MEDS ORDERED: ALBUTEROL 0.083% (NEB) 2.5 MG/3 ML AMP HHN PRN (16:30)
[2018-12-28] MEDS: ALBUTEROL/IPRATROPIUM (NEB) 3 ML AMP HHN PRN (17:26)
[2018-12-29] VITALS (12 sets, daily range): BP systolic 112–129; BP diastolic 60–97; PULSE 58–94; RESP 16–19
[2018-12-29] MEDS: PANTOPRAZOLE 40 MG INJ IV SCH ×2 (05:59→17:24)
[2018-12-29] MEDS: ALBUTEROL/IPRATROPIUM (NEB) 3 ML AMP HHN PRN (07:54)
[2018-12-29] MEDS: SUCRALFATE 1 GM TAB PO SCH ×4 (08:08→20:04)
--- NOTE | 2018-12-29 12:07 | PN ---
Date/Time of Note Date/Time of Note DATE: 12/29/18 TIME: 12:05 Assessment/Plan VTE Prophylaxis Risk score (from Ns)>0 risk: 3 SCD applied (from Ns): Yes Pharmacological prophylaxis: other (scds) Lines/Catheters IV [facility] (from [facility] Saline Lock Urinary Cath still in place: No Assessment/Plan Hospital Course Assessment: GI bleeding/hematemesis. s/p EGD 12/26/18 -large deep gastric ulcer with prior stigmata of bleeding - biopsies obtained to r/o gastric cancer BX shows Intramucosal adenocarcinoma Moderate anemia. Plan: Recommend Oncology and surgical consult Continue PPI and Carafate Monitor CBC and transfuse as needed for Hgb less than 7.5 Patient seen in collaboration with Dr. Danielson Subjective: Family at bedside, discussed results of bx, and recommendations for oncology and surgical consult. Patient/family verbalized understanding. PHYSICAL EXAMINATION: GENERAL: Alert & oriented x 3, in no acute distress SKIN: No lesions. NECK: Supple, no masses. CHEST: Inspection within normal limits. CARDIOVASCULAR: Heart: Regular rate and rhythm RESPIRATORY: Lungs clear to auscultation GASTROINTESTINAL AND LIVER: Abdomen: Soft, non tenderness, non-distended, no hernias, no masses, no organomegaly, no ascites, no guarding, no rebound tenderness, normoactive bowel sounds. Rectal: Deferred. EXTREMITIES: No cyanosis, clubbing or edema. Result Diagram: 12/29/18 0547 12/29/18 0547 Results 24hrs Laboratory Tests Test 12/28/18 13:14 12/29/18 05:47 Hemoglobin 8.6 L 8.6 L Hematocrit 25.9 L 25.5 L White Blood Count 5.9 Red Blood Count 2.88 L Mean Corpuscular Volume 88.5 Mean Corpuscular Hemoglobin 29.9 Mean Corpuscular Hemoglobin Concent 33.7 Red Cell Distribution Width 12.6 Platelet Count 244 Mean Platelet Volume 9.6 Immature Granulocytes % 0.500 H Neutrophils % 41.7 Lymphocytes % 44.7 Monocytes % 9.5 Eosinophils % 2.9 Basophils % 0.7 Nucleated Red Blood Cells % 0.0 Immature Granulocytes # 0.030 Neutrophils # 2.5 Lymphocytes # 2.6 Monocytes # 0.6 Eosinophils # 0.2 Basophils # 0.0 Nucleated Red Blood Cells # 0.0 Sodium Level 141 Potassium Level 3.7 Chloride Level 105 Carbon Dioxide Level 28 Anion Gap 8 Blood Urea Nitrogen 12 Creatinine 0.75 Est Glomerular Filtrat Rate mL/min > 60 Glucose Level 107 Calcium Level 9.2 Exam/Review of Systems Exam Vitals Vital Signs Date Temp Pulse Resp B/P (MAP) Pulse Ox O2 O2 Flow FiO2 Time Delivery Rate 12/29/18 97.7 67 18 112/62 92 11:30 (79) 12/29/18 21 07:54 12/26/18 Room Air 15:51 Intake and Output 12/28/18 12/28/18 12/29/18 1515:00 23:00 07:00 IntakeIntake Total 115 ml BalanceBalance 115 ml Results Results 24hrs Laboratory Tests Test 12/28/18 13:14 12/29/18 05:47 Hemoglobin 8.6 L 8.6 L Hematocrit 25.9 L 25.5 L White Blood Count 5.9 Red Blood Count 2.88 L Mean Corpuscular Volume 88.5 Mean Corpuscular Hemoglobin 29.9 Mean Corpuscular Hemoglobin Concent 33.7 Red Cell Distribution Width 12.6 Platelet Count 244 Mean Platelet Volume 9.6 Immature Granulocytes % 0.500 H Neutrophils % 41.7 Lymphocytes % 44.7 Monocytes % 9.5 Eosinophils % 2.9 Basophils % 0.7 Nucleated Red Blood Cells % 0.0 Immature Granulocytes # 0.030 Neutrophils # 2.5 Lymphocytes # 2.6 Monocytes # 0.6 Eosinophils # 0.2 Basophils # 0.0 Nucleated Red Blood Cells # 0.0 Sodium Level 141 Potassium Level 3.7 Chloride Level 105 Carbon Dioxide Level 28 Anion Gap 8 Blood Urea Nitrogen 12 Creatinine 0.75 Est Glomerular Filtrat Rate mL/min > 60 Glucose Level 107 Calcium Level 9.2 Medications Medication Current Medications IV Flush (NS 3 ml) 3 ml PER PROTOCOL IV ; Start 12/25/18 at 23:30 Ondansetron HCl (Zofran Inj) 4 mg Q6H PRN IV NAUSEA/VOMITING; Start 12/25/18 at 23:30 Acetaminophen (Tylenol Tab) 650 mg Q6H PRN PO .PAIN 1-3 OR TEMP Last administered on 12/27/18at 08:27; Admin Dose 650 MG; Start 12/25/18 at 23:30 Acetaminophen/ Hydrocodone Bitart ([place] (5/325)) 1 tab Q6H PRN PO .MOD PAIN 4- 6; Start 12/25/18 at 23:30 Morphine Sulfate (morphine) 2 mg Q4H PRN IV .SEVERE PAIN 7-10; Start 12/25/18 at 23:30 Docusate Sodium (Colace) 100 mg Q12H PRN PO .CONSTIPATION; Start 12/25/18 at 23:30 Magnesium Hydroxide (Milk Of Mag) 30 ml DAILY PRN PO .CONSTIPATION; Start 12/25/18 at 23:30 Pantoprazole (Protonix Iv) 40 mg BID@0600,1800 IV Last administered on 12/29/18at 05:59; Admin Dose 40 MG; Start 12/26/18 at 06:00 Lorazepam (Ativan) 0.5 mg Q6H PRN IV ANXIETY; Start 12/25/18 at 23:30 Albuterol/ Ipratropium (Duoneb) 3 ml Q4H RESP THERAPY PRN HHN SHORTNESS OF BREATH Last administered on 12/29/18at 07:54; Admin Dose 3 ML; Start 12/25/18 at 23:30 Hydralazine HCl (Apresoline) 10 mg Q6H PRN IV ELEVATED BLOOD PRESSURE; Start 12/25/18 at 23:30 Nitroglycerin (Nitroglycerin (Sl Tab) 0.4 Mg) 1 tab Q5M PRN SL ANGINA; Start 12/25/18 at 23:30 Sucralfate (Carafate) 1 gm QID PO Last administered on 12/29/18at 08:08; Admin Dose 1 GM; Start 12/26/18 at 13:00 Albuterol (Proventil 0.083% (Neb)) 2.5 mg Q4H RESP THERAPY PRN HHN SHORTNESS OF BREATH/WHEEZES; Start 12/28/18 at 16:30 CLAUDY DÍAZ Dec 29, 2018 12:06
--- NOTE | 2018-12-29 15:19 | CONS ---
Assessment/Plan Assessment/Plan Hospital Course (Demo Recall) 1.Gastric ulcer with biopsy + intramucosal adenocarcinoma, moderately differentiated, intestinal type; -Oncology consult -No emergent surgical intervention necessary at this time. May follow-up with us as outpatient 2. Hematemesis: 2/2 gastric ulcer; recent finding of esophagitis and gastritis -PPI and Carafate -Close monitoring 3. Normocytic normochromic anemia: -Monitor and transfuse as needed 4. Bilateral small inguinal hernias: -Monitor for symptoms Thank you. Patient seen and examined in collaboration with Dr. Jeff Rushing. Consultation Date/Type/Reason Admit Date/Time Dec 25, 2018 at 22:57 Date of Consultation: Dec 29, 2018 Type of Consult Surgical Reason for Consultation Gastric cancer Requesting Provider: MAYITO MAHAN MD Date/Time of Note DATE: 12/29/18 TIME: 15:07 Hx of Present Illness Tpaan Andrade is a 68-year-old man without known past medical history, who presented with reports of hematemesis. He underwent an EGD on 12/26/18 which revealed a large and deep gastric ulcer with stigmata of bleeding. Biopsies at that time were obtained and unfortunately biopsies have returned positive for i ntramucosal adenocarcinoma, moderately differentiated intestinal type. He denies any recent weight loss, difficulty eating, nausea, vomiting, change in bowel or bladder habits. He also denies fevers, chills, congested cough, labored breathing, seizures, skin changes. General surgery was asked to evaluate. 12 point review of systems was performed and is negative except for as stated in HPI. Past Medical History Recent diagnosis of gastric ulcers, Esophagitis, small hiatal hernia Home Meds Reported Medications Tamsulosin Hcl* (Flomax*) 0.4 Mg Cap.er.24h, 0.4 MG PO DAILY, CAP 12/26/18 Acetaminophen with Codeine (Acetaminophen-Cod #3 Tablet) 1 Each Tablet, 1 TAB PO Q6H, #7 TAB 12/26/18 Levofloxacin* (Levofloxacin*) 500 Mg Tablet, 500 MG PO DAILY, TAB 12/26/18 Omeprazole* (Omeprazole*) 40 Mg Capsule.dr, 40 MG PO DAILY, #30 CAP 12/26/18 Medications Current Medications IV Flush (NS 3 ml) 3 ml PER PROTOCOL IV ; Start 12/25/18 at 23:30 Ondansetron HCl (Zofran Inj) 4 mg Q6H PRN IV NAUSEA/VOMITING; Start 12/25/18 at 23:30 Acetaminophen (Tylenol Tab) 650 mg Q6H PRN PO .PAIN 1-3 OR TEMP Last administered on 12/27/18at 08:27; Admin Dose 650 MG; Start 12/25/18 at 23:30 Acetaminophen/ Hydrocodone Bitart ([place] (5/325)) 1 tab Q6H PRN PO .MOD PAIN 4-6; Start 12/25/18 at 23:30 Morphine Sulfate (morphine) 2 mg Q4H PRN IV .SEVERE PAIN 7-10; Start 12/25/18 at 23:30 Docusate Sodium (Colace) 100 mg Q12H PRN PO .CONSTIPATION; Start 12/25/18 at 23:30 Magnesium Hydroxide (Milk Of Mag) 30 ml DAILY PRN PO .CONSTIPATION; Start 12/25/18 at 23:30 Pantoprazole (Protonix Iv) 40 mg BID@0600,1800 IV Last administered on 12/29/18at 05:59; Admin Dose 40 MG; Start 12/26/18 at 06:00 Lorazepam (Ativan) 0.5 mg Q6H PRN IV ANXIETY; Start 12/25/18 at 23:30 Albuterol/ Ipratropium (Duoneb) 3 ml Q4H RESP THERAPY PRN HHN SHORTNESS OF BREATH Last administered on 12/29/18at 07:54; Admin Dose 3 ML; Start 12/25/18 at 23:30 Hydralazine HCl (Apresoline) 10 mg Q6H PRN IV ELEVATED BLOOD PRESSURE; Start 12/25/18 at 23:30 Nitroglycerin (Nitroglycerin (Sl Tab) 0.4 Mg) 1 tab Q5M PRN SL ANGINA; Start 12/25/18 at 23:30 Sucralfate (Carafate) 1 gm QID PO Last administered on 12/29/18at 12:06; Admin Dose 1 GM; Start 12/26/18 at 13:00 Albuterol (Proventil 0.083% (Neb)) 2.5 mg Q4H RESP THERAPY PRN HHN SHORTNESS OF BREATH/WHEEZES; Start 12/28/18 at 16:30 Allergies: Coded Allergies: No Known Allergy (Unverified , 12/25/18) Past Surgical History Past Surgical Hx: no surgical history Family History Significant Family History: no pertinent family hx Social History Alcohol Use: occasionally Smoking Status: Former smoker Drug Use: none Exam/Review of Systems Exam Vitals Vital Signs Date Temp Pulse Resp B/P (MAP) Pulse Ox O2 O2 Flow FiO2 Time Delivery Rate 12/29/18 86 13:07 12/29/18 97.7 18 112/62 92 11:30 (79) 12/29/18 21 07:54 12/26/18 Room Air 15:51 Intake and Output 12/28/18 12/28/18 12/29/18 1515:00 23:00 07:00 IntakeIntake Total 115 ml BalanceBalance 115 ml Constitutional: alert, oriented, well developed Psych: nl mood/affect; No anxiety Head: normocephalic, atraumatic Eyes: nl conjunctiva, EOMI, nl lids, nl sclera ENMT: nl external ears & nose, nl lips & teeth, mucosa pink and moist Neck: supple, non-tender; No jvd Respiratory: normal air movement; No congested cough Cardiovascular: regular rate and rhythm, nl pulses Gastrointestinal: soft, distended (Minimal), tender (Minimal tenderness midepigastric region); No rebound or guarding Genitourinary - Male: nl penis, nl scrotum Musculoskeletal: nl extremities to inspection, nl gait and stance Extremities: normal pulses Neurological: nl mental status, nl speech, nl strength Skin: No rash or lesions Lymph: nl lymph nodes Results Result Diagram: 12/29/18 0547 12/29/18 0547 Results 24hrs Laboratory Tests Test 12/29/18 05:47 White Blood Count 5.9 Red Blood Count 2.88 L Hemoglobin 8.6 L Hematocrit 25.5 L Mean Corpuscular Volume 88.5 Mean Corpuscular Hemoglobin 29.9 Mean Corpuscular Hemoglobin Concent 33.7 Red Cell Distribution Width 12.6 Platelet Count 244 Mean Platelet Volume 9.6 Immature Granulocytes % 0.500 H Neutrophils % 41.7 Lymphocytes % 44.7 Monocytes % 9.5 Eosinophils % 2.9 Basophils % 0.7 Nucleated Red Blood Cells % 0.0 Immature Granulocytes # 0.030 Neutrophils # 2.5 Lymphocytes # 2.6 Monocytes # 0.6 Eosinophils # 0.2 Basophils # 0.0 Nucleated Red Blood Cells # 0.0 Sodium Level 141 Potassium Level 3.7 Chloride Level 105 Carbon Dioxide Level 28 Anion Gap 8 Blood Urea Nitrogen 12 Creatinine 0.75 Est Glomerular Filtrat Rate mL/min > 60 Glucose Level 107 Calcium Level 9.2 Medications Medication Current Medications IV Flush (NS 3 ml) 3 ml PER PROTOCOL IV ; Start 12/25/18 at 23:30 Ondansetron HCl (Zofran Inj) 4 mg Q6H PRN IV NAUSEA/VOMITING; Start 12/25/18 at 23:30 Acetaminophen (Tylenol Tab) 650 mg Q6H PRN PO .PAIN 1-3 OR TEMP Last administered on 12/27/18at 08:27; Admin Dose 650 MG; Start 12/25/18 at 23:30 Acetaminophen/ Hydrocodone Bitart ([place] (5/325)) 1 tab Q6H PRN PO .MOD PAIN 4- 6; Start 12/25/18 at 23:30 Morphine Sulfate (morphine) 2 mg Q4H PRN IV .SEVERE PAIN 7-10; Start 12/25/18 at 23:30 Docusate Sodium (Colace) 100 mg Q12H PRN PO .CONSTIPATION; Start 12/25/18 at 23:30 Magnesium Hydroxide (Milk Of Mag) 30 ml DAILY PRN PO .CONSTIPATION; Start 12/25/18 at 23:30 Pantoprazole (Protonix Iv) 40 mg BID@0600,1800 IV Last administered on 12/29/18at 05:59; Admin Dose 40 MG; Start 12/26/18 at 06:00 Lorazepam (Ativan) 0.5 mg Q6H PRN IV ANXIETY; Start 12/25/18 at 23:30 Albuterol/ Ipratropium (Duoneb) 3 ml Q4H RESP THERAPY PRN HHN SHORTNESS OF BREATH Last administered on 12/29/18at 07:54; Admin Dose 3 ML; Start 12/25/18 at 23:30 Hydralazine HCl (Apresoline) 10 mg Q6H PRN IV ELEVATED BLOOD PRESSURE; Start 12/25/18 at 23:30 Nitroglycerin (Nitroglycerin (Sl Tab) 0.4 Mg) 1 tab Q5M PRN SL ANGINA; Start 12/25/18 at 23:30 Sucralfate (Carafate) 1 gm QID PO Last administered on 12/29/18at 12:06; Admin Dose 1 GM; Start 12/26/18 at 13:00 Albuterol (Proventil 0.083% (Neb)) 2.5 mg Q4H RESP THERAPY PRN HHN SHORTNESS OF BREATH/WHEEZES; Start 12/28/18 at 16:30 CHARLEE OLIVEROS NP Dec 29, 2018 15:19
--- NOTE | 2018-12-29 16:18 | CONS ---
Assessment/Plan Assessment/Plan Hospital Course (Demo Recall) #Gastric adenocarcinoma -this appears to be early stage -will need out patient PET CT to ensure no evidence of distant mets -will need out patient EUS to determine whether or not patient would benefit from neoaduvant chemotherapy or whether he can proceed to up front surgery. I have already made the referral for endoscopic ultrasound #Iron deficiency anemia -will given IV iron as an out patient Consultation Date/Type/Reason Admit Date/Time Dec 25, 2018 at 22:57 Date of Consultation: Dec 29, 2018 Type of Consult Oncology Reason for Consultation gastric cancer Requesting Provider: MAYITO MAHAN MD Date/Time of Note DATE: 12/29/18 TIME: 16:14 Hx of Present Illness 68 yo male with no PMH with a new diagnosis of gastric adenocarcinoma. His history is as follows: 12/25/18 pt presented with UGI bleed x 1 episode. On admission patients Hg was around 10.9 but did dip to 7.7. He has not received nay blood products and his Hg now is stable between 8-9. 12/26/18 pt underwent EGD which revealed a large deep gastric ulcer with prior stigmata of bleeding. Bx demonstrated intramucosal adenocarcinoma 12/27/18 demonstrates no evidence of metastatic disease. Constitutional: no complaints Eyes: no complaints ENT: no complaints Respiratory: no complaints Cardiovascular: no complaints Gastrointestinal: no complaints Genitourinary: no complaints Musculoskeletal: no complaints Skin: no complaints Neurologic: no complaints Endocrine: no complaints Lymphatic: no complaints Psychological: no complaints Past Medical History Medical History: no pertinent history Home Meds Reported Medications Tamsulosin Hcl* (Flomax*) 0.4 Mg Cap.er.24h, 0.4 MG PO DAILY, CAP 12/26/18 Acetaminophen with Codeine (Acetaminophen-Cod #3 Tablet) 1 Each Tablet, 1 TAB PO Q6H, #7 TAB 12/26/18 Levofloxacin* (Levofloxacin*) 500 Mg Tablet, 500 MG PO DAILY, TAB 12/26/18 Omeprazole* (Omeprazole*) 40 Mg Capsule.dr, 40 MG PO DAILY, #30 CAP 12/26/18 Medications Current Medications IV Flush (NS 3 ml) 3 ml PER PROTOCOL IV ; Start 12/25/18 at 23:30 Ondansetron HCl (Zofran Inj) 4 mg Q6H PRN IV NAUSEA/VOMITING; Start 12/25/18 at 23:30 Acetaminophen (Tylenol Tab) 650 mg Q6H PRN PO .PAIN 1-3 OR TEMP Last administered on 12/27/18at 08:27; Admin Dose 650 MG; Start 12/25/18 at 23:30 Acetaminophen/ Hydrocodone Bitart ([place] (5/325)) 1 tab Q6H PRN PO .MOD PAIN 4- 6; Start 12/25/18 at 23:30 Morphine Sulfate (morphine) 2 mg Q4H PRN IV .SEVERE PAIN 7-10; Start 12/25/18 at 23:30 Docusate Sodium (Colace) 100 mg Q12H PRN PO .CONSTIPATION; Start 12/25/18 at 23:30 Magnesium Hydroxide (Milk Of Mag) 30 ml DAILY PRN PO .CONSTIPATION; Start 12/25/18 at 23:30 Pantoprazole (Protonix Iv) 40 mg BID@0600,1800 IV Last administered on 12/19 08/08at 05:59; Admin Dose 40 MG; Start 12/26/18 at 06:00 Lorazepam (Ativan) 0.5 mg Q6H PRN IV ANXIETY; Start 12/25/18 at 23:30 Albuterol/ Ipratropium (Duoneb) 3 ml Q4H RESP THERAPY PRN HHN SHORTNESS OF BREATH Last administered on 12/29/18at 07:54; Admin Dose 3 ML; Start 12/25/18 at 23:30 Hydralazine HCl (Apresoline) 10 mg Q6H PRN IV ELEVATED BLOOD PRESSURE; Start 12/25/18 at 23:30 Nitroglycerin (Nitroglycerin (Sl Tab) 0.4 Mg) 1 tab Q5M PRN SL ANGINA; Start 12/25/18 at 23:30 Sucralfate (Carafate) 1 gm QID PO Last administered on 12/29/18at 12:06; Admin Dose 1 GM; Start 12/26/18 at 13:00 Albuterol (Proventil 0.083% (Neb)) 2.5 mg Q4H RESP THERAPY PRN HHN SHORTNESS OF BREATH/WHEEZES; Start 12/28/18 at 16:30 Allergies: Coded Allergies: No Known Allergy (Unverified , 12/25/18) Past Surgical History Past Surgical Hx: no surgical history Social History Alcohol Use: occasionally Smoking Status: Former smoker Drug Use: none Exam/Review of Systems Exam Vitals Vital Signs Date Temp Pulse Resp B/P (MAP) Pulse Ox O2 O2 Flow FiO2 Time Delivery Rate 12/29/18 98.1 94 19 125/75 97 15:45 (92) 12/29/18 21 07:54 12/26/18 Room Air 15:51 Intake and Output 12/28/18 12/28/18 12/29/18 1515:00 23:00 07:00 IntakeIntake Total 115 ml BalanceBalance 115 ml Constitutional: alert, oriented Psych: no complaints Head: normocephalic Eyes: nl conjunctiva ENMT: nl external ears & nose Neck: supple Respiratory: clear to auscultation Cardiovascular: regular rate and rhythm Gastrointestinal: soft Musculoskeletal: nl extremities to inspection Extremities: normal pulses Results Result Diagram: 12/29/18 0547 12/29/18 0547 Results 24hrs Laboratory Tests Test 12/29/18 05:47 White Blood Count 5.9 Red Blood Count 2.88 L Hemoglobin 8.6 L Hematocrit 25.5 L Mean Corpuscular Volume 88.5 Mean Corpuscular Hemoglobin 29.9 Mean Corpuscular Hemoglobin Concent 33.7 Red Cell Distribution Width 12.6 Platelet Count 244 Mean Platelet Volume 9.6 Immature Granulocytes % 0.500 H Neutrophils % 41.7 Lymphocytes % 44.7 Monocytes % 9.5 Eosinophils % 2.9 Basophils % 0.7 Nucleated Red Blood Cells % 0.0 Immature Granulocytes # 0.030 Neutrophils # 2.5 Lymphocytes # 2.6 Monocytes # 0.6 Eosinophils # 0.2 Basophils # 0.0 Nucleated Red Blood Cells # 0.0 Sodium Level 141 Potassium Level 3.7 Chloride Level 105 Carbon Dioxide Level 28 Anion Gap 8 Blood Urea Nitrogen 12 Creatinine 0.75 Est Glomerular Filtrat Rate mL/min > 60 Glucose Level 107 Calcium Level 9.2 Medications Medication Current Medications IV Flush (NS 3 ml) 3 ml PER PROTOCOL IV ; Start 12/25/18 at 23:30 Ondansetron HCl (Zofran Inj) 4 mg Q6H PRN IV NAUSEA/VOMITING; Start 12/25/18 at 23:30 Acetaminophen (Tylenol Tab) 650 mg Q6H PRN PO .PAIN 1-3 OR TEMP Last administered on 12/27/18at 08:27; Admin Dose 650 MG; Start 12/25/18 at 23:30 Acetaminophen/ Hydrocodone Bitart ([place] (5/325)) 1 tab Q6H PRN PO .MOD PAIN 4- 6; Start 12/25/18 at 23:30 Morphine Sulfate (morphine) 2 mg Q4H PRN IV .SEVERE PAIN 7-10; Start 12/25/18 at 23:30 Docusate Sodium (Colace) 100 mg Q12H PRN PO .CONSTIPATION; Start 12/25/18 at 23:30 Magnesium Hydroxide (Milk Of Mag) 30 ml DAILY PRN PO .CONSTIPATION; Start 12/25/18 at 23:30 Pantoprazole (Protonix Iv) 40 mg BID@0600,1800 IV Last administered on 12/29/18at 05:59; Admin Dose 40 MG; Start 12/26/18 at 06:00 Lorazepam (Ativan) 0.5 mg Q6H PRN IV ANXIETY; Start 12/25/18 at 23:30 Albuterol/ Ipratropium (Duoneb) 3 ml Q4H RESP THERAPY PRN HHN SHORTNESS OF BREATH Last administered on 12/29/18at 07:54; Admin Dose 3 ML; Start 12/25/18 at 23:30 Hydralazine HCl (Apresoline) 10 mg Q6H PRN IV ELEVATED BLOOD PRESSURE; Start 12/25/18 at 23:30 Nitroglycerin (Nitroglycerin (Sl Tab) 0.4 Mg) 1 tab Q5M PRN SL ANGINA; Start 12/25/18 at 23:30 Sucralfate (Carafate) 1 gm QID PO Last administered on 12/29/18at 12:06; Admin Dose 1 GM; Start 12/26/18 at 13:00 Albuterol (Proventil 0.083% (Neb)) 2.5 mg Q4H RESP THERAPY PRN HHN SHORTNESS OF BREATH/WHEEZES; Start 12/28/18 at 16:30 WALLY HOLLY M.D. Dec 29, 2018 16:18
--- NOTE | 2018-12-29 16:55 | PDOCDIS ---
Discharge Instructions DIAGNOSIS Discharge Diagnosis Peptic ulcer Gi bleeding CONDITION [id number] Patient Condition: [id number] Stable FOLLOW UP/APPOINTMENTS Follow-up Plan Make an appointment with Dr Schaeffer to discuss management of your gastric cancer. Her office number is You should also call Dr Rubén Javier at to schedule an endoscopic ultrasound to assess the stage of your cancer MAYITO MAHAN MD Dec 29, 2018 16:55
--- NOTE | 2018-12-29 16:57 | DS ---
Date/Time of Note Date/Time of Note DATE: 12/29/18 TIME: 16:56 Discharge Summary Admission/Discharge Info Admit Date/Time Dec 25, 2018 at 22:57 Discharge Date/Time Discharge Diagnosis Peptic ulcer Gi bleeding Patient Condition: Stable Hospital Course 68 yo male with acute blood loss anemia from GI bleeding He was treated with IV PPI. He underwent endoscopy showing a large gastric ulcer, concerning for malignancy. Biopsy was taken which indeed confirmed gastric carcinoma. CT showed no spread of disease. He was discharged with guidance to see Dr Schaeffer from oncology in clinic as well as to see Dr Javier in clinic for an endoscopic ultrasound to assess stage Home Meds Reported Medications Tamsulosin Hcl* (Flomax*) 0.4 Mg Cap.er.24h, 0.4 MG PO DAILY, CAP 12/26/18 Acetaminophen with Codeine (Acetaminophen-Cod #3 Tablet) 1 Each Tablet, 1 TAB PO Q6H, #7 TAB 12/26/18 Levofloxacin* (Levofloxacin*) 500 Mg Tablet, 500 MG PO DAILY, TAB 12/26/18 Omeprazole* (Omeprazole*) 40 Mg Capsule., 40 MG PO DAILY, #30 CAP 12/26/18 Follow-up Plan Make an appointment with Dr Schaeffer to discuss management of your gastric cancer. Her office number is You should also call Dr Rubén Javier at to schedule an endoscopic ultrasound to assess the stage of your cancer Primary Care Provider Not On Staff Doctor Pending Labs Laboratory Tests Test 12/29/18 05:47 White Blood Count 5.9 10^3/ul (4.8-10.8) Red Blood Count 2.88 10^6/ul (4.70-6.10) Hemoglobin 8.6 g/dl (14.0-18.0) Hematocrit 25.5 % (42.0-52.0) Mean Corpuscular Volume 88.5 fl (82.0-101.0) Mean Corpuscular Hemoglobin 29.9 pg (29.0-33.0) Mean Corpuscular Hemoglobin Concent 33.7 g/dl (32.0-37.0) Red Cell Distribution Width 12.6 % (11.5-14.5) Platelet Count 244 10^3/UL (140-415) Mean Platelet Volume 9.6 fl (7.4-10.4) Immature Granulocytes % 0.500 % (0.001-0.429) Neutrophils % 41.7 % (39.0-77.0) Lymphocytes % 44.7 % (15.0-51.0) Monocytes % 9.5 % (0.0-11.0) Eosinophils % 2.9 % (0.0-7.0) Basophils % 0.7 % (0.0-2.0) Nucleated Red Blood Cells % 0.0 /100WBC (0.0-0.0) Immature Granulocytes # 0.030 10^3/ul (0.0-0.031) Neutrophils # 2.5 10^3/ul (1.6-7.5) Lymphocytes # 2.6 10^3/ul (0.8-2.9) Monocytes # 0.6 10^3/ul (0.3-0.9) Eosinophils # 0.2 10^3/ul (0.0-0.5) Basophils # 0.0 10^3/ul (0.0-0.1) Nucleated Red Blood Cells # 0.0 10^3/ul (0.0-0.0) Sodium Level 141 mmol/L (135-144) Potassium Level 3.7 mmol/L (3.5-5.1) Chloride Level 105 mmol/L (97-110) Carbon Dioxide Level 28 mmol/L (21-31) Anion Gap 8 (5-13) Blood Urea Nitrogen 12 mg/dl (7-20) Creatinine 0.75 mg/dl (0.61-1.24) Est Glomerular Filtrat Rate mL/min > 60 mL/min (>60) Glucose Level 107 mg/dl (70-220) Calcium Level 9.2 mg/dl (8.4-10.2) MAYITO MAHAN MD Dec 29, 2018 16:57
[2018-12-30] VITALS (7 sets, daily range): BP systolic 101–123; BP diastolic 57–77; PULSE 65–92; RESP 18–20
[2018-12-30] MEDS: PANTOPRAZOLE 40 MG INJ IV SCH (05:25)
[2018-12-30] MEDS: SUCRALFATE 1 GM TAB PO SCH (08:04)
--- NOTE | 2018-12-30 14:44 | PN ---
Date/Time of Note Date/Time of Note DATE: 12/30/18 TIME: 14:43 Assessment/Plan VTE Prophylaxis Risk score (from Ns)>0 risk: 4 SCD applied (from Ns): Yes Pharmacological prophylaxis: heparin Lines/Catheters IV [facility]from [facility] Urinary Cath still in place: No Assessment/Plan Hospital Course 68 yo male with acute blood loss anemia from GI bleeding He was treated with IV PPI. He underwent endoscopy showing a large gastric ulcer, concerning for malignancy. Biopsy was taken which indeed confirmed gastric carcinoma. CT showed no spread of disease. He was discharged with guidance to see Dr Schaeffer from oncology in clinic as well as to see Dr Javier in clinic for an endoscopic ultrasound to assess stage Result Diagram: 12/30/1824 12/30/18 0624 Results 24hrs Laboratory Tests Test 12/30/18 06:24 White Blood Count 6.1 Red Blood Count 2.99 L Hemoglobin 9.0 L Hematocrit 26.6 L Mean Corpuscular Volume 89.0 Mean Corpuscular Hemoglobin 30.1 Mean Corpuscular Hemoglobin Concent 33.8 Red Cell Distribution Width 12.8 Platelet Count 277 Mean Platelet Volume 9.4 Immature Granulocytes % 0.300 Neutrophils % 46.6 Lymphocytes % 40.5 Monocytes % 8.9 Eosinophils % 3.0 Basophils % 0.7 Nucleated Red Blood Cells % 0.0 Immature Granulocytes # 0.020 Neutrophils # 2.8 Lymphocytes # 2.5 Monocytes # 0.5 Eosinophils # 0.2 Basophils # 0.0 Nucleated Red Blood Cells # 0.0 Sodium Level 142 Potassium Level 3.6 Chloride Level 105 Carbon Dioxide Level 27 Anion Gap 10 Blood Urea Nitrogen 13 Creatinine 0.71 Est Glomerular Filtrat Rate mL/min > 60 Glucose Level 111 Calcium Level 9.0 Subjective 24 Hr Interval Summary Free Text/Dictation Stayed in house as no transportation home Today son came to get him. Discussed plan of care at [facility]. Has GI appointment today at 2:30 Exam/Review of Systems Exam Vitals Vital Signs Date Temp Pulse Resp B/P (MAP) Pulse Ox O2 O2 Flow FiO2 Time Delivery Rate 12/30/18 97.7 82 19 118/72 97 11:37 (87) 12/29/18 21 07:54 12/26/18 Room Air 15:51 Intake and Output 12/29/18 12/29/18 12/30/18 1515:00 23:00 07:00 IntakeIntake Total 1550 ml 120 ml BalanceBalance 1550 ml 120 ml Constitutional: alert, oriented, well developed Psych: no complaints, nl mood/affect Head: normocephalic, atraumatic Eyes: nl conjunctiva, EOMI, nl lids, nl sclera, PERRL ENMT: nl external ears & nose, nl lips & teeth, nl nasal mucosa & septum Neck: supple, non-tender Respiratory: clear to auscultation, normal air movement Cardiovascular: regular rate and rhythm, nl pulses Gastrointestinal: soft, nl liver, spleen, non-tender Musculoskeletal: nl extremities to inspection, nl gait and stance Extremities: normal pulses Neurological: PATIENT SAFETY SITTER II-XII intact, nl mental status, nl speech, nl strength Skin: nl turgor; No rash or lesions Lymph: nl lymph nodes Results Results 24hrs Laboratory Tests Test 12/30/18 06:24 White Blood Count 6.1 Red Blood Count 2.99 L Hemoglobin 9.0 L Hematocrit 26.6 L Mean Corpuscular Volume 89.0 Mean Corpuscular Hemoglobin 30.1 Mean Corpuscular Hemoglobin Concent 33.8 Red Cell Distribution Width 12.8 Platelet Count 277 Mean Platelet Volume 9.4 Immature Granulocytes % 0.300 Neutrophils % 46.6 Lymphocytes % 40.5 Monocytes % 8.9 Eosinophils % 3.0 Basophils % 0.7 Nucleated Red Blood Cells % 0.0 Immature Granulocytes # 0.020 Neutrophils # 2.8 Lymphocytes # 2.5 Monocytes # 0.5 Eosinophils # 0.2 Basophils # 0.0 Nucleated Red Blood Cells # 0.0 Sodium Level 142 Potassium Level 3.6 Chloride Level 105 Carbon Dioxide Level 27 Anion Gap 10 Blood Urea Nitrogen 13 Creatinine 0.71 Est Glomerular Filtrat Rate mL/min > 60 Glucose Level 111 Calcium Level 9.0 MAYITO MAHAN MD Dec 30, 2018 14:44
== END 2018-12-30 12:05 | disposition home or self-care (01) | DRG 374 ==
LOC: E/R 20:58 → TEL 22:57
PROVIDERS: ADMIT Hospitalist; ATTEND Internal Medicine
PROC: 0DB68ZX Excision of Stomach, Via Natural or Artificial Opening Endoscopic, Diagnostic (ICD-10-PCS; principal; 2018-12-26 11:30)
DX: C16.9 Malignant neoplasm of stomach, unspecified (principal); K25.4 Chronic or unspecified gastric ulcer with hemorrhage; K92.0 Hematemesis; D62 Acute posthemorrhagic anemia; K22.10 Ulcer of esophagus without bleeding; D50.9 Iron deficiency anemia, unspecified; K44.9 Diaphragmatic hernia without obstruction or gangrene; N40.0 Benign prostatic hyperplasia without lower urinary tract symptoms; Z87.891 Personal history of nicotine dependence
CPT/HCPCS: 36415; 71045; 74178; 80048; 80053; 80061; 83036; 83735; 84100; 84439; 84443; 84481; 84484; 85014; 85018; 85025; 85610; 85730; 86850; 86900; 86901; 88305; 88312; 94640; 96365; C9113; J2354; J2405; J7030; J7040; Q9967